=== PATIENT | male | born 1960 | race American Indian/Alaskan Native ===

== ENCOUNTER → 2024-11-07 | Outpatient (CLI) | payer MEDICARE, MEDICAID, SELFPAY ==
[2024-11-07 11:18] LABS: Quantiferon-TB* See Sep Rpt
[2024-11-07 11:39] LABS: Basophils # (Auto) 0.1 Thou/mm3 (0.0-0.2); Basophils % (Auto) 2 % (0-2.5); Eosinophils # (Auto) 1.3 Thou/mm3 (0.0-0.5); Eosinophils % (Auto) 14 % (0-10); Hematocrit 53.3 % (41.0-53.0); Hemoglobin 18.1 g/dL (13.5-16.0); Immature Granulocytes % (Auto) 0 % (0-0); Immature Granulocytes Auto 0.03 Thou/mm3 (0.00-0.00); Lymphocytes # (Auto) 2.1 Thou/mm3 (1.0-4.8); Lymphocytes % (Auto) 23 % (10-50); Mean Corpuscular Hemoglobin 29.6 pg (25.0-35.0); Mean Corpuscular Volume 87 fL (80-100); Monocytes # (Auto) 0.8 Thou/mm3 (0.0-0.8); Monocytes % (Auto) 8 % (0-12); Neutrophils # (Auto) 4.9 Thou/mm3 (1.8-7.7); Neutrophils % (Auto) 54 % (37-80); Nucleated Red Blood Cell % 0 /100 WBC (0); Platelet Count 251 Thou/mm3 (140-440); RDW Standard Deviation 41.8 fL (35.1-43.9); Red Blood Count 6.11 Miln/mm3 (4.50-5.90); White Blood Count 9.1 Thou/mm3 (3.8-10.6)
[2024-11-07 11:51] LABS: Glucose Estimated Average 171 mg/dL (80-131); Hemoglobin A1C 7.6 % Hgb (4.8-6.0)
[2024-11-07 12:03] LABS: Alanine Aminotransferase 56 U/L (10-49); Albumin, Serum 5.1 gm/dL (3.4-4.8); Albumin/Globulin Ratio 1.8 (1.2-2.2); Alkaline Phosphatase 87 U/L (46-116); Anion Gap 10 (7-16); Aspartate Amino Transferase 33 U/L (0-34); BUN/Creatinine Ratio 16 Ratio (12-20); Bilirubin,Total 0.7 mg/dL (0.3-1.2); Blood Urea Nitrogen 14 mg/dL (9-23); Calcium 10.7 mg/dL (8.3-10.6); Calcium (Corrected) 10.7 mg/dL (8.5-10.1); Carbon Dioxide 29.9 mMol/L (20.0-31.0); Chloride 100 mMol/L (98-107); Creatinine (Component) 0.9 mg/dL (0.6-1.3); Globulin 2.9 gm/dL (2.3-3.5); Glucose 193 mg/dL (74-106); Osmolality,Calculated 284 (275-295); Potassium 4.4 mMol/L (3.4-5.1); Sodium 140 mMol/L (136-145); eGFR > 60 See Note
[2024-11-07 12:05] LABS: Creatinine MALB Rnd Ur 62 mg/dL (30-125); Microalbumin, Random Urine < 3 mg/L (0-300)
[2024-11-08 12:27] LABS: Cocci Serology, IgM Negative (Negative)
[2024-11-09 13:42] LABS: Cocci Serology, IgG Negative (Negative)
== END | disposition home or self-care (01) ==
PROVIDERS: PCP Family Medicine; Referring Provider Internal Medicine; Visit Provider Internal Medicine
DX: E11.8 Type 2 diabetes mellitus with unspecified complications (principal); I10 Essential (primary) hypertension; J44.9 Chronic obstructive pulmonary disease, unspecified; R04.2 Hemoptysis
CPT/HCPCS: 36415; 80053; 82043; 82570; 83036; 85025; 86331; 86480; 86635

== ENCOUNTER → 2024-11-08 | Outpatient (CLI) | payer MEDICARE, MEDICAID, SELFPAY ==
--- NOTE | 2024-11-08 13:26 | XR_ITS ---
Examination: PA lateral chest 2 views Technique: Upright PA lateral chest 2 views Exam date and time: November 08, 2024 1356 hrs. Comparison 2022 Indications: Coughing beginning 2 days ago. Findings: Again noted pleural scarring at the right base Normal heart size No pneumonia or pulmonary edema Moderate osteopenia Impression: No interval pneumonia or pulmonary edema
--- NOTE | 2024-11-08 15:00 | XR_ITS ---
Examination: CT chest, without intravenous contrast. Sagittal and coronal 2-D reconstructions. Exam date and time: November 08, 2024 1340 hrs. Comparison June 28, 2024 Indications: Hemoptysis beginning 3 days ago, history 6 mm pleural-based pulmonary nodule lingular segment left upper lobe on CT chest June 28, 2024 CTDI:vol (mGy) 13.2 DLP: (mGycm) 481 Technique: Multiple 3.0 mm axial sections of the chest to been obtained. Bone and lung density settings are obtained. Sagittal and coronal 2-D reconstructions have been obtained. Low dose protocols were performed. One or more of the following dose reduction techniques were used; automated exposure control, adjustment of the mA and/or KV according to patient size, use of iterative reconstruction technique. Findings: No thoracic aortic aneurysm dilatation Pulmonary artery segments are not enlarged Heavy calcification versus stent left anterior descending coronary artery. No paratracheal tracheobronchial or bronchopulmonary adenopathy 6 mm pleural-based pulmonary nodule left upper lobe 2 mm pulmonary nodule left midlung 2 mm pulmonary nodule right lower lobe No pneumonia or pulmonary edema Calcifications in the right perihilar infrahilar region Impression: Subcentimeter pulmonary nodules as above, with this study as baseline recommend 1 additional 6 month follow-up CT chest without contrast
== END | disposition home or self-care (01) ==
PROVIDERS: PCP Internal Medicine; Referring Provider Internal Medicine; Visit Provider Internal Medicine
DX: R91.8 Other nonspecific abnormal finding of lung field (principal); R04.2 Hemoptysis
CPT/HCPCS: 71046; 71250

== ENCOUNTER 2025-04-27 16:05 | Inpatient (IN) | payer MEDICARE, MEDICAID, SELFPAY ==
[2025-04-27 16:06] VITALS: BMI 26.8
[2025-04-27 16:14] VITALS: BP 151/95; PULSE 87; RESP 20; TEMP 36.7; O2SAT 95
--- NOTE | 2025-04-27 16:20 | XR_ITS ---
Examination: CT brain head without contrast. 2-D sagittal coronal reconstructions Date and time of exam:April 27, 2025 1636 hours INDICATIONS: Onset numbness of face slurred speech and blurred vision today COMPARISON: April 04, 2023 CTDI: vol (mGy):52 DLP: (mGycm):1011 Technique: Multiple CT axial sections of the brain have been obtained, 5 mm slice thickness. Contrast has not been administered. 2-D sagittal, coronal reconstructions have been obtained Low dose protocols were performed. One or more of the following dose reduction techniques were used; automated exposure control, adjustment of the mA and/or KV according to patient size, use of iterative reconstruction technique. Findings: No significant ventricular enlargement. Intra-axial or extra-axial hemorrhage density is not seen. No mass effect or midline shift Basal cisterns are not remarkable. Fourth ventricle is midline. Cranial vault intact. Impression: Negative for acute hemorrhage, mass effect or midline shift As clinically warranted, brain MRI follow-up would best assess for acute ischemic change
--- NOTE | 2025-04-27 16:21 | PD.EDRME ---
Rapid Medical Screening Exam RME Arrival date/time: 04/27/25 16:05 64-year-old male with a history of hyperlipidemia, type 2 diabetes, hypertension presents to the emergency room with a chief complaint of slurred speech and left-sided mouth numbness x 3 days I have greeted and performed a focused initial assessment of this patient. A comprehensive ED assessment and evaluation of the patient, analysis of all test results, and completion of the medical decision making process will be conducted by additional ED providers. Chief Complaint: General Adult/Misc Complain Time Seen by Provider: 04/27/25 16:18 Vital signs: Vital Signs Temperature 98.0 F 04/27/25 16:14 Pulse Rate 87 04/27/25 16:14 Respiratory Rate 20 04/27/25 16:14 Blood Pressure 151/95 H 04/27/25 16:14 Pulse Oximetry (%) 95 04/27/25 16:14 Oxygen Delivery Method Room Air 04/27/25 16:14 Vital signs reviewed by provider: Yes
[2025-04-27 17:08] LABS: Basophils # (Auto) 0.1 Thou/mm3 (0.0-0.2); Basophils % (Auto) 1 % (0-2.5); Eosinophils # (Auto) 0.1 Thou/mm3 (0.0-0.5); Eosinophils % (Auto) 1 % (0-10); Hematocrit 50.6 % (41.0-53.0); Hemoglobin 17.1 g/dL (13.5-16.0); Immature Granulocytes Auto 0.03 Thou/mm3 (0.00-0.00); Lymphocytes # (Auto) 1.1 Thou/mm3 (1.0-4.8); Lymphocytes % (Auto) 11 % (10-50); Mean Corpuscular HGB Conc 33.8 g/dl (31.0-37.0); Mean Corpuscular Hemoglobin 29.3 pg (25.0-35.0); Mean Corpuscular Volume 87 fL (80-100); Monocytes # (Auto) 0.6 Thou/mm3 (0.0-0.8); Monocytes % (Auto) 7 % (0-12); Neutrophils # (Auto) 7.5 Thou/mm3 (1.8-7.7); Neutrophils % (Auto) 80 % (37-80); Nucleated Red Blood Cell # 0.00 Thou/mm3 (0.00-0.00); Nucleated Red Blood Cell % 0 /100 WBC (0); Platelet Count 212 Thou/mm3 (140-440); RDW Standard Deviation 40.2 fL (35.1-43.9); Red Blood Count 5.83 Miln/mm3 (4.50-5.90); White Blood Count 9.3 Thou/mm3 (3.8-10.6)
[2025-04-27 17:25] LABS: INR 1.2 (0.9-1.3); Partial Thromboplastin Time 27.8 Seconds (22.0-36.0); Prothrombin Time 12.5 Seconds (9.0-12.2)
[2025-04-27 17:27] LABS: Alanine Aminotransferase 58 U/L (10-49); Albumin, Serum 4.9 gm/dL (3.4-4.8); Albumin/Globulin Ratio 2.0 (1.2-2.2); Alkaline Phosphatase 71 U/L (46-116); Anion Gap 11 (7-16); Aspartate Amino Transferase 39 U/L (0-34); BUN/Creatinine Ratio 14 Ratio (12-20); Bilirubin,Total 0.6 mg/dL (0.3-1.2); Blood Urea Nitrogen 11 mg/dL (9-23); Calcium 10.2 mg/dL (8.3-10.6); Calcium (Corrected) 10.2 mg/dL (8.5-10.1); Carbon Dioxide 26.0 mMol/L (20.0-31.0); Chloride 103 mMol/L (98-107); Creatinine (Component) 0.8 mg/dL (0.6-1.3); Estimated Creatinine Clearance 96.3 mL/min (>60); Globulin 2.4 gm/dL (2.3-3.5); Glucose 152 mg/dL (74-106); Magnesium 1.3 mg/dL (1.6-2.6); Osmolality,Calculated 281 (275-295); Potassium 4.0 mMol/L (3.4-5.1); Sodium 140 mMol/L (136-145); Total Protein 7.3 gm/dL (5.7-8.2); eGFR > 60 See Note
[2025-04-27 17:29] LABS: Collection Type, Urine Clean Catch; RBC,Urine 0 /hpf (0-3); Squamous Epithelial Cell,Urine 0 /hpf (0-5); WBC,Urine 0 /hpf (0-5)
[2025-04-27 17:46] LABS: Bilirubin,Urine Negative (Negative); Blood,Urine Negative (Negative); Clarity,Urine Clear (Clear/Hazy); Color,Urine Colorless (Lt Yel-Yel); Glucose, Urine 4+ (Negative); Ketones,Urine Negative (Negative); Leukocyte Esterase,Urine Negative (Negative); Nitrite,Urine Negative (Negative); PH,Urine 6.5 (5.0-7.0); Protein,Urine Negative (Neg - Trace); Specific Gravity,Urine 1.011 (1.001-1.035); Urobilinogen,Urine Negative mg/dL (0.0-1.0)
[2025-04-27 17:53] LABS: Amphetamine/Methamp Scrn,U Negative (Negative); Barbiturate Screen,Urine Negative (Negative); Benzodiazepines Screen,Urine Negative (Negative); Benzoylecgonine Screen, Ur Negative (Negative); Fentanyl Screen,Urine Negative (Negative); Opiate Screen,Urine Negative (Negative); THC Screen,Urine Negative (Negative)
[2025-04-27 18:13] VITALS: BP 152/88; PULSE 82; RESP 18; TEMP 36.6; O2SAT 97
--- NOTE | 2025-04-27 18:15 | PC.NURSE ---
PT CAME IN WITH C/O TWITCHING TO R EYE, HEADACHE AND R FACIAL DROOP SINCE 11AM TODAY. PT STATES THAT 3 DAYS AGO HE FELT LIKE HIS TONGUE WAS NUMB AND HE LOST TASTE. PT STATES THAT HE THOUGHT HE MIGHT HAVE COVID SO HE TESTED AND TEST WAS NEGATIVE. TODAY HE STATES THAT AT 11 AM HE LOOKED IN THE MIRROR AND NOTICED THAT HIS R SIDE MOUTH LOOKED LIKE IT WAS DROOPING AND HE STATES THAT HE COULD NOT SPIT. HIS EYE WAS TWITCHING WELL. NO WEAKNESS NOTED TO EXTREMITIES. 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 PT ABLE TO MOVE ALL EXTREMITIES EQUALLY. GAIT STEADY. SPEECH CLEAR.
[2025-04-27 18:17] VITALS: PULSE 97
--- NOTE | 2025-04-27 18:17 | XR_ITS ---
Examination: CTA carotids with intravenous contrast CTA brain, head with intravenous contrast. 2-D sagittal, coronal reconstructions. 3-D reconstructions. Exam date and time: April 27, 2025, 1833 hours INDICATIONS: Left-sided facial weakness slurred speech today CTDI: vol (mGy) 17.6 DLP: (mGycm) 514 Technique: Multiple CTA axial brain, head carotid images post intravenous contrast injection 100 cc, [id number]. 2-D sagittal, coronal reconstructions. 3-D reconstructions, 3-D post processing including vascular maximum intensity projection images. Low dose protocols were performed. One or more of the following dose reduction techniques were used; automated exposure control, adjustment of the mA and/or KV according to patient size, use of iterative reconstruction technique. Findings: No significant right common carotid carotid bifurcation or internal carotid artery stenoses 40-60% stenosis left carotid bifurcation origin left internal carotid artery Dominant left vertebral artery no critical vertebral artery stenoses Basilar artery posterior cerebral branches do fill Juxtasellar supraclinoid portions internal carotid arteries show, heavy calcification of the juxtasellar portions of the internal carotid arteries with 50% plus stenosis bilaterally No M1 middle cerebral artery occlusions There appears to be some decrease in filling of right middle cerebral artery trifurcation vessels Anterior cerebral arteries fill IMPRESSION: 40-60% stenosis left carotid bifurcation origin left internal carotid artery 50% plus stenosis bilateral juxtasellar internal carotid arteries No large vessel arterial cerebral occlusions There appears to be some decrease in filling of right middle cerebral artery trifurcation vessels, clinical correlation is advised Given the patient's presentation, consider brain MRI MRA, stroke protocol, follow-up
--- NOTE | 2025-04-27 18:20 | PD.EDNEURO ---
Neuro Symptoms Deficit-RME/HPI General Chief Complaint: Neuro Symptoms/Deficit Stated Complaint: VISION FLUTTERY/BLURRY, MOUTH NOT WORKING Time Seen by Provider: 04/27/25 16:18 Arrival date/time: 04/27/25 16:05 Limitations: no limitations RME / HPI RME / HPI Narrative: 64-year-old male who is here today with his partner. He states 3 days ago, he had some flavor changes and numbness of his tongue and upper palate. He states he took numerous COVID screening test that were negative. He states he went to a casino last night but did not abuse alcohol. He states he felt fine. This morning at 11:00 AM, he noted right-sided facial numbness and a slight droop at his corner of his right lip. He states he has had difficulty with some secretions that started at the same time. Patient states he has a remote history of DVT and does not take any blood thinners right now. He has a history of carotid artery stenosis, coronary artery disease, diabetes, hypertension, and prior atrial fibrillation. Related Data Home Medications ?Medication ?Instructions ?Recorded ?Confirmed aspirin 81 mg tablet,delayed 81 mg PO QDAY ##0 10/04/15 12/01/23 release (Aspir-) metformin 1,000 mg tablet 1,000 mg PO BID #0 tabs 01/12/17 12/01/23 (Glucophage) atorvastatin 40 mg tablet 20 mg PO QDAY 05/13/19 12/01/23 lorazepam 0.5 mg tablet 0.5 mg PO BID PRN Anxiety 05/13/19 12/01/23 montelukast 10 mg tablet 10 mg PO QDAY 06/07/19 12/01/23 fluticasone furoate 100 1 inh inhalation DAILY 07/29/22 12/01/23 mcg-vilanterol 25 mcg/dose inhalation powder (Breo Ellipta) insulin aspart U-100 100 unit/mL See Rx Instructions .Route .COMPLEX 07/29/22 12/01/23 (3 mL) subcutaneous pen (Novolog FlexPen U-100 Insulin aspart) insulin glargine 100 unit/mL (3 See Rx Instructions .Route .COMPLEX 07/29/22 12/01/23 mL) subcutaneous pen (Lantus Solostar U-100 Insulin) empagliflozin 25 mg tablet 25 mg PO QDAY 12/01/23 12/01/23 (Jardiance) losartan 50 mg tablet 100 mg PO QDAY 12/01/23 12/01/23 Allergies Allergy/AdvReac Type Severity Reaction Status Date / Time Penicillins Allergy Severe Flushing Verified 04/27/25 16:10 Review of Systems Review of Systems Systems Reviewed: All systems reviewed, normal except as documented ED Exam General Limitations: Present no limitations General appearance: Present alert and in no apparent distress Head Head exam: Present atraumatic Eye Eye exam: Present normal appearance, PERRL and EOMI ENT ENT exam: Present normal exam, normal oropharynx and mucous membranes moist Neck Neck exam: Present normal inspection, full ROM and trachea midline Chest Chest inspection: Present normal inspection and symmetric chest wall rise Respiratory Respiratory exam: Present normal lung sounds bilaterally Cardiovascular Cardiovascular exam: Present regular rate, normal rhythm and normal heart sounds Abdominal Exam Abdominal exam: Present soft and normal bowel sounds Extremities Exam Extremities exam: Present normal inspection and full ROM Back Exam Back exam: Present normal inspection and full ROM Neurological Exam Neurological exam: Present alert, oriented X3 and CN II-XII intact (There is a right sided facial droop, cranial nerves II to XII otherwise intact.) Psychiatric Psychiatric exam: Present normal affect and normal mood Skin Skin exam: Present warm, dry, intact and normal color Course Course Course Narrative: Took call from teleneuro, recommend aspirin, valacyclovir, corticosteroids and MRI with and without contrast. 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 START 00 Care 04/27/25 18:16 Active Decision to Admit X1 Care 04/27/25 19:29 Active EKG (ED ONLY) *Do not use* NOW Care 04/27/25 18:29 Active Insert IV NOW Care 04/27/25 18:16 Active MRI Screening NOW Care 04/27/25 19:[address] angio carotid w head w Stat Exams 04/27/25 18:[address] head/brain wo con Stat Exams 04/27/25 16:20 Completed EKG (ED Only) Stat Exams 04/27/25 18:29 Draft MR head/brain wo con Stat Exams 04/27/25 Ordered CBC Stat Lab 04/27/25 16:57 Completed Comprehensive Metabolic Panel Stat Lab 04/27/25 16:57 Completed Drug Screen,Urine Stat Lab 04/27/25 17:23 Completed Magnesium Stat Lab 04/27/25 16:57 Completed Partial Thromboplastin Time Stat Lab 04/27/25 16:57 Completed Prothrombin Time with INR Stat Lab 04/27/25 16:57 Completed Urinalysis Stat Lab 04/27/25 17:23 Completed Acyclovir [Zovirax] Med 04/27/25 18:41 Discontinued 800 mg PO X1 ONE Aspirin Chew Med 04/27/25 18:41 Discontinued 81 mg PO X1 ONE Magnesium Oxide [Mag-Ox 400] Med 04/27/25 18:04 Discontinued 400 mg PO X1 ONE Magnesium Sulfate 1 gm Ivpb [Magnesium Sulfate Ivpb] Med 04/27/25 18:05 Discontinued 1 gm in 100 ml IV X1 dexAMETHasone TAB [Decadron Tab] Med 04/27/25 19:00 Discontinued 8 mg PO X1 ONE Vital Signs Vital signs: Vital Signs Temperature 98.0 F 04/27/25 16:14 Pulse Rate 87 04/27/25 16:14 Respiratory Rate 20 04/27/25 16:14 Blood Pressure 151/95 H 04/27/25 16:14 Pulse Oximetry (%) 95 04/27/25 16:14 Oxygen Delivery Method Room Air 04/27/25 16:14 Neuro Symptoms / Deficit MDM Narrative MDM Narrative:: 64-year-old male who is here today with his partner. He states 3 days ago, he had some flavor changes and numbness of his tongue and upper palate. He states he took numerous COVID screening test that were negative. He states he went to a casino last night but did not abuse alcohol. He states he felt fine. This morning at 11:00 AM, he noted right-sided facial numbness and a slight droop at his corner of his right lip. He states he has had difficulty with some secretions that started at the same time. Patient states he has a remote history of DVT and does not take any blood thinners right now. He has a history of carotid artery stenosis, coronary artery disease, diabetes, hypertension, and prior atrial fibrillation. Patient's onset of symptoms at 11:00 AM triggered our stroke alert. On exam, patient is nontoxic-appearing and in no visible signs of distress. Vital signs are stable. He has symmetrical elevation of bilateral eyelids. There is a mild droop at the corner of the right mouth. Speech is clear. Workup here was unremarkable. Neurology recommended treatment for possible Brown's palsy and further workup including MR of the brain with and without contrast. This discussed with the patient. We will admit to medicine. Case discussed with our [facility] hospitalist team will see the patient for admission. Patient data External records reviewed:: None Clinical information provided by:: patient and family Social determinants that could affect healthcare access:: none Patient has the following chronic illnesses:: Hypertension, hyperlipidemia, diabetes, coronary artery disease, carotid artery stenosis How is presenting disease/condition affected by chronic disease/condition?: exacerbated by Evaluation data The following diagnostics were reviewed and interpreted by me:: lab results (CBC is unremarkable. PT/INR within normal limits. Glucose is 152, metabolic panel otherwise unremarkable. Urinalysis is unremarkable.), radiology exam(s) (CT of the head is unremarkable for any acute intracranial pathology.) and EKG tracing(s) (Normal sinus rhythm at 78 beats per of no ST changes or dynamic T waves. Left axis deviation is present.) Lab and/or radiology exams considered but not ordered:: n/a Interpretation Summary: Possible Brown's palsy versus acute CVA. Medications / Prescriptions Medications or Prescriptions considered but not ordered:: n/a Medication administrations:: Medication Administration History Discontinued Medications Acyclovir (Acyclovir 800 Mg Tablet) 800 mg PO X1 ONE Stop: 04/27/25 18:42 Aspirin (Aspirin 81 Mg Chew) 81 mg PO X1 ONE Stop: 04/27/25 18:42 Dexamethasone (Dexamethasone 4 Mg Tablet) 8 mg PO X1 ONE; Protocol Stop: 04/27/25 19:01 Magnesium Sulfate/Dextrose (Magnesium Sulfate Ivpb) 1 gm in 100 mls @ 100 mls/hr IV X1 ONE Stop: 04/27/25 19:04 Last Admin: 04/27/25 18:16 Dose: 100 mls/hr Documented By: DO Magnesium Oxide (Magnesium Oxide 400 Mg Tablet) 400 mg PO X1 ONE Stop: 04/27/25 18:05 Last Admin: 04/27/25 18:16 Dose: Not Given Documented By: DO Non-Admin Reason: Cancelled by Provider See above Consultations Consultation(s) initiated? (list below): Yes Diagnosis Neuro Differential Diagnosis: cerebrovascular accident, transient cerebral ischemia and other (Brown's palsy) Most likely diagnosis given after review of the tests above:: Brown's palsy versus CVA Admission Indicated Admission indicated?: indicated Admission Request Was there a request for admission?: Yes Admission Attestation Admission request attestation: Discussed case with [] from Hospitalist service regarding admission. Discussed patients ED course, exam findings, labs, and radiology results. The Hospitalist [agrees,declines] to accept the patient for admission. Disposition Plan Disposition Plan: Admit Discharge Plan Plan Patient Disposition: Admit Acute Care w/in Hospital Patient condition on transfer: Stable Prescriptions/Referrals Prescriptions/Med Rec: No Action aspirin [Aspir-81] 81 mg Tablet,Delayed Release (Dr/Ec) 81 mg PO QDAY Qty: 0 metformin [Glucophage] 1,000 MG tablet 1,000 mg PO BID Qty: 0 montelukast 10 mg tablet 10 mg PO QDAY Patient Comments: TAKE 1 TABLET BY MOUTH EVERY DAY IN THE EVENING atorvastatin 40 mg tablet 20 mg PO QDAY Patient Comments: TAKE 1 TABLET BY MOUTH EVERY DAY lorazepam 0.5 mg Tablet 0.5 mg PO BID PRN (Reason: Anxiety) insulin aspart U-100 [Novolog FlexPen U-100 Insulin] 100 unit/mL (3 mL) insulin pen See Rx Instructions .ROUTE .COMPLEX Patient Comments: INJECT 10 TO 12 UNITS UNDER THE SKIN THREE TIMES DAILY WITH MEALS Rx Instructions: 12-16 units insulin glargine [Lantus Solostar U-100 Insulin] 100 unit/mL (3 mL) insulin pen See Rx Instructions .ROUTE .COMPLEX Patient Comments: ADMINISTER 60 UNITS UNDER THE SKIN EVERY DAY. INSULIN PROTOCOL Rx Instructions: 60 units fluticasone furoate-vilanterol [Breo Ellipta] 100-25 mcg/dose Blister With Device 1 inh INHALATION DAILY Jardiance 25 mg Tablet 25 mg PO QDAY losartan 50 mg tablet 100 mg PO QDAY Referrals: Gibran Sandy PA-C [Primary Care Provider] - In 1 week Problem List Clinical Impression: Facial droop Patient/Caregiver Discharge Instructions Print Language: Peruvian Stand Alone Forms: Stefania Award Info., Patient Portal Info Letter
--- NOTE | 2025-04-27 18:21 | PC.NURSE ---
PT TO CT
--- NOTE | 2025-04-27 18:29 | EKG_ITS ---
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: : 1960 Requested By: Lucien Govea Order Number: [id number] Reading MD: Lucien Govea Measurements Intervals [place] Rate: 78 P: 9 [place]: 193 QRS: -38 QRSD: 104 T: 124 QT: 366 QTc: 419 Interpretive Statements SINUS RHYTHM LEFT AXIS DEVIATION [QRS AXIS < -30] SEPTAL MYOCARDIAL INFARCTION , OF INDETERMINATE AGE [40+ ms Q WAVE IN V1/V2] MODERATE T-WAVE ABNORMALITY, CONSIDER LATERAL ISCHEMIA [-0.1+ mV T-WAVE IN I/aVL/V5/V6] Compared to ECG 04/04/2023 19:07:34 Left-axis deviation now present T-wave abnormality now present Possible ischemia now present Sinus tachycardia no longer present Left anterior fascicular block no longer present Left ventricular hypertrophy no longer present ST (T wave) deviation no longer present Myocardial infarct finding still present /store/[id number]
--- NOTE | 2025-04-27 18:41 | PD.TNEURO ---
Tele Neuro Consultation Consultation Date 04/27/25 Most Recent Vital Signs Last Vital Signs Temp 97.8 F 04/27/25 18:13 Pulse 97 04/27/25 18:17 Resp 18 04/27/25 18:13 BP 152/88 H 04/27/25 18:13 Pulse Ox 97 04/27/25 18:13 O2 Del Method Room Air 04/27/25 18:13 Laboratory-Coagulation Panel PT 12.5 Seconds (9.0-12.2) H 04/27/25 16:57 INR 1.2 (0.9-1.3) 04/27/25 16:57 APTT 27.8 Seconds (22.0-36.0) 04/27/25 16:57 Consultation Narrative [facility] Tele[facility]urology Consult Services Patient Name:???Severino Sim Date of :???1960 Identification Number:??? Date of Service:???04/27/2025 18:19:11 Diagnosis:?R29.810 - Facial numbness/ Facial weakness Impression: ?Patient is a 64-year-old male with a past medical history significant for hypertension, hyperlipidemia, CAD who is being evaluated for concerns of right sided facial weakness. ?Presents with complaints of tongue numbness, taste changes, right-sided facial droop, reduced eye closure strength on the right eye, some visual changes on the right eye. ?Symptom onset 3 days back ?Head CT shows no acute intracranial changes. ?On exam patient has both upper and lower right sided facial weakness. Reduced eye closure strength, reduced blinking rate. No clear lateralizing weakness or numbness on the upper or lower extremities. No upper extremity ataxia bilaterally. Gait is intact with no truncal or gait ataxia. ? 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 ?Can consider treating with oral steroids and antivirals. ?Low suspicion for an acute ischemic event. Last well-known greater than 4-1/2 hours patient is not an IV thrombolytic candidate. ?Due to the occasional dysequilibrium can obtain MRI brain with and without contrast (Cranial nerve protocol) to rule out anycentral etiologies. Our recommendations are outlined below. Recommendations: ? Bedside Swallow Eval ? DVT Prophylaxis ? IV Fluids, Normal Saline ? Head of Bed 30 Degrees ? Euglycemia and Avoid Hyperthermia (PRN Acetaminophen) ? 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 ?Can consider treating with oral steroids and antivirals. ?Low suspicion for an acute ischemic event. Last well-known greater than 4-1/2 hours patient is not an IV thrombolytic candidate. ?Continue ASA 81 ?Due to the occasional dysequilibrium can obtain MRI brain with and without contrast (Cranial nerve protocol) to rule out anycentral etiologies. Sign Out: ? Discussed with Emergency Department Provider Advanced Imaging: Advanced Imaging Deferred because: Does not meet criteria due to being out of the 24-hour window for thrombectomy Metrics: Last Known Well: Unknown Dispatch Time: 04/27/2025 18:19:11 Arrival Time: 04/27/2025 18:20:15 Initial Response Time: 04/27/2025 18:23:01Symptoms: Right sided facial droop. Initial patient interaction: 04/27/2025 18:25:00 NIHSS Assessment Completed: 04/27/2025 18:33:53Patient is not a candidate for Thrombolytic. Thrombolytic Medical Decision: 04/27/2025 18:34:04Patient was not deemed candidate for Thrombolytic because of following reasons: LKW outside 4.[address] Head: CT head unremarkable for acute infarction or hemorrhage per Radiology: report reviewed Primary Provider Notified of Diagnostic Impression and Management Plan on: 04/27/2025 18:36:52 History of Present Illness:Patient is a 64 year old Male. Patient was brought by private transportation with symptoms of Right sided facial droop. Patient is a 64-year-old male with a past medical history significant for hypertension, hyperlipidemia, CAD who is being evaluated for concerns of right sided facial weakness. Patient mentions that he has been having symptoms since the last 3 days. Mentions that he initially started having numbness in the right side of his mouth. Food tasted differently. Then he noticed that his right side of the face is droopy when he is smiling. He is also complaining of some visual flashers on the right eye. He is also complaining of some off balance issues which come and go. He is able to ambulate in the ED without any difficulty. Past Medical History: ?Hypertension ?Diabetes Mellitus ?Hyperlipidemia ?Coronary Artery Disease Medications: No Anticoagulant use? Antiplatelet use:?Yes?ASA 81 Reviewed EMR for current medications Allergies:? Description:?As per chart Social History: Smoking: No Family History: There is no family history of premature cerebrovascular disease pertinent to this consultation ROS : 14 Points Review of Systems was performed and was negative except mentioned in HPI. Past Surgical History: There Is No Surgical History Contributory To Today?s Visit Examination: BP(151/95),?Pulse(97), 1A: Level of Consciousness - Alert; keenly responsive?+ 0 1B: Ask Month and Age - Both Questions Right?+ 0 1C: Blink Eyes & Squeeze Hands - Performs Both Tasks?+ 0 2: Test Horizontal Extraocular Movements - Normal?+ 0 3: Test Visual Tovar - No Visual Loss?+ 0 4: Test Facial Palsy (Use Grimace if Obtunded) - Unilateral Complete paralysis (upper/lower face)?+ 3 5A: Test Left Arm Motor Drift - No Drift for 10 Seconds?+ 0 5B: Test Right Arm Motor Drift - No Drift for 10 Seconds?+ 0 6A: Test Left Leg Motor Drift - No Drift for 5 Seconds?+ 0 6B: Test Right Leg Motor Drift - No Drift for 5 Seconds?+ 0 7: Test Limb Ataxia (FNF/Heel-Valenzuela) - No Ataxia?+ 0 8: Test Sensation - Normal; No sensory loss?+ 0 9: Test Language/Aphasia - Normal; No aphasia?+ 0 10: Test Dysarthria - Normal?+ 0 11: Test Extinction/Inattention - No abnormality?+ 0 NIHSS Score:?3 Pre-Morbid Modified Gavi Scale:1 Points = No significant disability despite symptoms; able to carry out all usual duties and activities Spoke with :?ED Provider This consult was conducted in real time using interactive audio and video technology. Patient was informed of the technology being used for this visit and agreed to proceed. Patient located in hospital and provider located at home/office setting. Patient is being evaluated for possible acute neurologic impairment and high probability of imminent or life-threatening deterioration. I spent total of 45 minutes providing care to this patient, including time for face to face visit via telemedicine, review of medical records, imaging studies and discussion of findings with providers, the patient and/or family. Dr Kaden Sosa [facility] For Inpatient follow-up with [facility] physician please call [facility] at . As we are not an outpatient service for any post hospital discharge needs please contact the hospital for assistance. If you have any questions for the [facility] physicians or need to reconsult for clinical or diagnostic changes please contact us via [facility] at . Signature :Diane Sosa
--- NOTE | 2025-04-27 18:46 | PC.NURSE ---
PT BACK FROM CT
[2025-04-27] MEDS: ACYCLOVIR 800 MG TABLET PO (20:25)
[2025-04-27] MEDS: ASPIRIN 81 MG CHEW PO (20:25)
[2025-04-27 20:43] VITALS: BP 149/88; PULSE 75; RESP 17; TEMP 36.7; O2SAT 96
--- NOTE | 2025-04-27 21:23 | XR_ITS ---
Examination: Duplex scan of the lower extremity, unilateral right Date and time of exam: April 27, 2025 2139 hours INDICATIONS: Right leg pain 1 year Technique: Duplex scan of the extremity veins using B-mode/grayscale imaging and Doppler spectral analysis and color flow Attention is directed to internal echogenicity, compression and augmentation involving these veins, color flow assessment, spectral analysis Findings: Positive for acute DVT proximal right superficial femoral vein remaining deep venous system ( IMPRESSION: Positive for acute DVT proximal right superficial femoral vein..
--- NOTE | 2025-04-27 21:35 | ESHP_ITS ---
Documentation for date of: 04/27/25 [facility] History of Present Illness Chief complaint: Vision flashes, mouth not working History of present illness: 64-year-old male with PMH of CAD s/p stent, HTN, DM2 (on insulin), HLD, prior A- fib (off anticoagulation) not confirmed, remote DVT (untreated), and carotid artery stenosis, who presented with right-sided facial droop and tongue/palate numbness. Three days prior to admission, he noted abnormal tongue sensation and altered taste, initially attributing it to herbal supplements (oregano oil and black seed oil). He discontinued them 2 days ago without improvement. On the morning of admission (11 AM), he developed new right-sided facial droop, incomplete right eye closure, and difficulty spitting. He also reported flashes of light in the right eye and brief episodes of disequilibrium while brushing his teeth in the preceding week. No limb weakness, dysarthria, aphasia, or sensory loss. He endorsed mild headache, intermittent sweats, and chronic left ear fullness/itching. No fevers, cough, chest pain, or dysphagia. He has a remote history of DVT, CAD with stent (2016), and prior A-fib but is not on anticoagulation. He denies recent tobacco, alcohol, or drug use. He quit smoking in 2014 (20 pack-years) and alcohol in 2002. Workup in ED: CT head negative for acute infarct/bleed. CTA showed 40?60% left ICA stenosis, ~50% bilateral juxtasellar ICA stenosis, no large vessel occlusion. Labs largely unremarkable except Mg 1.3. EKG NSR, LAD, Q waves V1?V2, nonspecific T-wave changes. 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 They recommended MRI brain with CN protocol, ASA, DVT prophylaxis, and consideration of steroids/antivirals. Review of Systems * General: +Sweats, no weight loss, no fever/chills * HEENT: +Tongue/palate numbness, +facial droop, +eye flashes, +ear fullness/itching, no hearing loss, no dysphagia * Neuro: +Mild GUTIERREZ, +facial asymmetry, +balance issues, no limb weakness, no sensory loss * CV: Occasional mild chest discomfort, no palpitations, no edema * Resp: No SOB, cough, hemoptysis * GI: Loose stools x3 days, no abdominal pain, no N/V * : No dysuria or hematuria * Skin: No rashes, recent insect bite RLE (healed, no target lesion) * MSK: No new joint pain * Endo: No polydipsia/polyuria Past Medical History * CAD s/p stent (2016) * Carotid artery stenosis (40?60% left ICA, bilateral ~50% stenosis) * Hypertension * Hyperlipidemia * Diabetes mellitus type 2 (on insulin + metformin) * Atrial fibrillation (off anticoagulation ~1.5 years) * Remote DVT (untreated, RLE larger than LLE) * History of valley fever * Prior lung surgery (RLL resection for clot burden) Past Surgical History * PCI with stent placement (2016) * Right lower lobe lung resection * Knee surgery (2001) Medications (pending med rec's) * Insulin glargine 50 units qHS * Insulin lispro 12 units with meals * Metformin * Lisinopril * Magnesium supplement * Aspirin 81 mg daily Allergies * Penicillin (reaction unspecified) Family History * Father: CAD, of [place] * No known family history of stroke Social History * Lives with partner * Former smoker (20 pack-years, quit 2014) * Quit alcohol 2002 * Denies recreational drug use * 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 Pupils equal, EOMI, no nystagmus. Oral mucosa moist; tongue midline; decreased sensation of tongue/palate. Neuro: CN II?XII intact except R CN VII palsy. Strength 5/5 in all extremities, no pronator drift. Sensation intact. No dysmetria, gait steady. Speech fluent and clear. Cardiac: RRR, no murmurs Lungs: CTAB Abdomen: Soft, NT/ND, no organomegaly Extremities: RLE slightly larger than LLE, no tenderness, no erythema Skin: Healing insect bite on leg, no rash or erythema migrans Results: Labs 04/27/25 16:57 04/27/25 16:57 Labs: Short CBC 04/27/25 Range/Units 16:57 WBC 9.3 (3.8-10.6) Thou/mm3 Hgb 17.1 H (13.5-16.0) g/dL Hct 50.6 (41.0-53.0) % Plt Count 212 (140-440) Thou/mm3 BMP 04/27/25 16:57 Sodium 140 Potassium 4.0 Chloride 103 Carbon Dioxide 26.0 BUN 11 Creatinine 0.8 Glucose 152 H Calcium 10.2 Liver Function 04/27/25 Range/Units 16:57 Total Bilirubin 0.6 (0.3-1.2) mg/dL AST 39 H (0-34) U/L ALT 58 H (10-49) U/L Alkaline Phosphatase 71 (46-116) U/L Albumin 4.9 H (3.4-4.8) gm/dL Urine 04/27/25 Range/Units 17:23 Urine Color Colorless A (Lt Yel-Yel) Urine Clarity Clear (Clear/Hazy) Urine pH 6.5 (5.0-7.0) Ur Specific [place] 1.011 (1.001-1.035) Urine Protein Negative (Neg - Trace) Urine Glucose (UA) 4+ A (Negative) Quality Measures Quality Measures VTE therapy Medications Home Medications and Allergies Home Medications ?Medication ?Instructions ?Recorded ?Confirmed ?Type aspirin 81 mg tablet,delayed 81 mg PO QDAY ##0 6 12/01/23 History release (Aspir-) metformin 1,000 mg tablet 1,000 mg PO BID #0 tabs 05/0 12/2612/01/23 History (Glucophage) atorvastatin 40 mg tablet 20 mg PO QDAY 05/13/1911/30 History lorazepam 0.5 mg tablet 0.5 mg PO BID PRN Anxiety 12/01/23 History montelukast 10 mg tablet 10 mg PO QDAY 06/07/1911/30 History fluticasone furoate 100 1 inh inhalation DAILY 07/2912/01/23 History mcg-vilanterol 25 mcg/dose inhalation powder (Breo Ellipta) insulin aspart U-100 100 unit/mL See Rx Instructions . Route .COMPLEX 07/29/22 12/01/23 History (3 mL) subcutaneous pen (Novolog FlexPen U-100 Insulin aspart) insulin glargine 100 unit/mL (3 See Rx Instructions .R oute .COMPLEX 07/29/22 12/01/23 History mL) subcutaneous pen (Lantus Solostar U-100 Insulin) empagliflozin 25 mg tablet 25 mg PO QDAY 12/01/2311/10 History (Jardiance) losartan 50 mg tablet 100 mg PO QDAY 12/01/2311/10 History Allergies Allergy/AdvReac Type Severity Reaction Status Date / Time Penicillins Allergy Severe Flushing Verified 04/27/25 16:10 Visit Medications Acetaminophen (Acetaminophen 325 Mg Tablet) 650 mg PO Q6H PRN PRN Reason: Fever >100.4 Stop: 05/27/25 21:09 Acetaminophen (Acetaminophen 325 Mg Tablet) 650 mg PO Q6H PRN PRN Reason: PAIN SCALE 1-3 (mild Stop: 05/27/25 21:09 Dextrose (Dextrose 50%-Water Inj 50 Ml Syringe) 25 ml IV Q15MIN PRN PRN Reason: BG 50-70 responsive npo pt Stop: 05/27/25 21:09 Dextrose (Dextrose 50%-Water Inj 50 Ml Syringe) 50 ml IV Q15MIN PRN PRN Reason: BG <50 OR BG <70 & pt unresponsive Stop: 05/27/25 21:09 Glucagon (Glucagon Inj 1 Mg Vial) 1 mg IM Q15MIN PRN PRN Reason: BG <70, and no IV access Heparin Sodium (Porcine) (Heparin Sod Inj 5000 Unit/Ml Vial) 5,000 unit SC Q12HR SHALOM Stop: 05/12/25 08:59 Magnesium Sulfate (Magnesium Sulfate Ivpb) 4 gm in 50 mls @ 12.5 mls/hr IV X1 ONE Stop: 04/28/25 01:25 Insulin Glargine (Insulin Glargine (Lantus) 5 Unit/0.05 Ml (Per 5 Units)) 40 unit SC HS SHALOM Stop: 05/27/25 21:24 Insulin Human Lispro (Insulin Lispro (Admelog) 1 Unit/0.01 Ml Unit) 0 unit SC AC SHALOM; Protocol Stop: 05/28/25 07:29 Ondansetron HCl (Ondansetron Inj 2 Mg/Ml Inj 2 Ml) 4 mg IVP Q6H PRN; Protocol PRN Reason: NAUSEA OR VOMITING Stop: 05/27/25 21:09 Pantoprazole Sodium (Pantoprazole Inj 40 Mg Vial) 40 mg IVP QDAY SHALOM Stop: 05/28/25 08:59 Prednisone (Prednisone 20 Mg Tablet) 60 mg PO QDAY SHALOM Stop: 05/04/25 21:06 Discontinued Medications Acyclovir (Acyclovir 800 Mg Tablet) 800 mg PO X1 ONE Stop: 04/27/25 18:42 Last Admin: 04/27/25 20:25 Dose: 800 mg Aspirin (Aspirin 81 Mg Chew) 81 mg PO X1 ONE Stop: 04/27/25 18:42 Last Admin: 04/27/25 20:25 Dose: 81 mg Dexamethasone (Dexamethasone 4 Mg Tablet) 8 mg PO X1 ONE; Protocol Stop: 04/27/25 19:01 Last Admin: 04/27/25 20:25 Dose: 8 mg Magnesium Sulfate/Dextrose (Magnesium Sulfate Ivpb) 1 gm in 100 mls @ 100 mls/hr IV X1 ONE Stop: 04/27/25 19:04 Last Infusion: 04/27/25 19:55 Dose: Infused Magnesium Oxide (Magnesium Oxide 400 Mg Tablet) 400 mg PO X1 ONE Stop: 04/27/25 18:05 Last Admin: 04/27/25 18:16 Dose: Not Given Assessment & Plan Plan 64M with CAD, HTN, DM2, HLD, prior A-fib (off anticoagulation due to prior major bleed), remote DVT, carotid stenosis, presenting with right facial droop. 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 Duplex US now positive for acute R SFA DVT. Patient placed in observation on telemetry. # Stroke rule out # CN VII palsy Presentation most consistent with Brown?s palsy given upper + lower face involvement, incomplete eye closure, and absence of other focal neuro deficits. Stroke less likely but not excluded MRI pending. Plan: * Observation on telemetry * MRI brain with and without contrast * ASA 81 mg daily (continue) * Prednisone 60 mg daily ? 7 days (start date 04/28- ) * Valacyclovir not in EMR --> day team to call pharmacy to give valacyclovir 1g 3 times daily for 7 days * Follow-up HgbA1c, lipid panel * If not available, use Acyclovir 400 mg PO 5x daily ? 10 days (less convenient, inferior bioavailability) * Follow-up echocardiogram * Swallow evaluation * Neuro checks q6h * Neuroconsulted, recommendations appreciated # Acute embolism and thrombosis of right femoral vein RLE duplex: positive for acute DVT in R SFV. History of remote untreated DVT. Risks and benefits of starting patient on anticoagulation discussed in length, patient in agreement to be started on anticoagulation. Plan: * Patient has clear indication for therapeutic anticoagulation * Needed heparin drip per protocol * Discussed risks/benefits with patient, including prior GI bleed history; patient agreed to proceed with heparin drip * Monitor CBC daily * Long-term anticoagulation to be reassessed with neurology and cardiology # Atrial fibrillation History of paroxysmal A-fib, currently in NSR. Previously on anticoagulation, stopped 2?3 years ago after GI bleed with Hgb dropping to 6, source unidentified. CHADS-VASc >4, anticoagulation indicated Has-bled score 1, Patient has relatively low risk for major bleeding Plan: * Telemetry monitoring * Now covered with heparin drip for acute DVT, which also provides stroke prophylaxis for A-fib * Consult cardiology (Dr. Padilla) for input on long-term anticoagulation strategy and A-fib management # Carotid artery stenosis CTA head/neck: 40?60% L ICA stenosis, ~50% bilateral juxtasellar ICA stenosis. No LVO. Plan: * Continue ASA 81 mg daily * High-intensity statin (atorvastatin 80 mg daily) * Monitor for recurrent TIA/stroke symptoms # Coronary artery disease S/p stent (2017). Stable, EKG with old septal infarct, no acute ischemia. Plan: * Continue ASA 81 mg * Continue lisinopril * Continue/start statin * Telemetry monitoring # Diabetes mellitus type 2 On insulin glargine 50 units nightly, lispro 12 units with meals, metformin. To avoid hypoglycemia, gave glargine 40 units tonight until med rec confirmed. Plan: * Continue insulin with adjusted glargine 40 units qHS for now * Resume full home regimen once med rec verified * Hold metformin inpatient * SSI coverage * Monitor closely given steroid therapy (prednisone 60 mg daily) * A1C pending # Hypomagnesemia Mg 1.3 on arrival, repleted in ED. Plan: * Monitor BMP/Mg daily # Hypertension # Hyperlipidemia Plan: * Continue lisinopril * Continue atorvastatin once med rec's are back Health maintenance: Disposition: Observation on telemetry Diet: Cardiac + carb consistent Anticoagulation: Heparin drip initiated for acute DVT and A-fib stroke prevention GI prophylaxis: Protonix Neuro checks: q4h Code Status: Full Code ----- Plan discussed with attending physician Dr. Yady Mcintosh MD PGY-1 Internal Medicine Attending Provider Attestation/Addendum Attending Provider Attestation/Addendum After examination of the patient and review of the clinical data I feel that this patient needs admission to the hospital for further treatment/evaluation. I Matthew Conteh MD, attest that I was physically present for ramírez portions of evaluation, and examined patient, labs and imagings and plan of care were discussed with IM residents team, and I agree with the findings and plans documented above.
[2025-04-27 21:36] VITALS: RESP 97
--- NOTE | 2025-04-27 21:45 | PC.NURSE ---
pt given sandwich, chips and juice.
[2025-04-27] MEDS: Magnesium Sulfate 4 GM Ivpb 4 GM/50 ML BAG IV (21:58)
--- NOTE | 2025-04-27 21:58 | PC.NURSE ---
lantus not available in er pixus. global find done states med not available in hospital. informed linen room houseperson, states will check for medication.
[2025-04-27] MEDS: INSULIN DEGLUDEC 5 UNIT/0.05 ML (PER 5 UNITS) 40 UNIT SC (22:23)
[2025-04-27 23:51] VITALS: PULSE 90
[2025-04-28] VITALS (9 sets, daily range): BP systolic 114–141; BP diastolic 79–89; PULSE 82–95; RESP 15–97; TEMP 35.9–37.1; O2SAT 95–97; BMI 25.7
--- NOTE | 2025-04-28 | XR_ITS ---
Examination: MRI brain without intravenous contrast. Date and time of exam: April 28, 20254 hours INDICATIONS: Onset facial droop and facial numbness with headaches beginning yesterday Technique: Multiple axial and sagittal images of the brain obtained. Siemens high-resolution 1.5 Brittany short bore scanners utilized. Sagittal sections, T1-weighted, TR 500, TE 14, are performed. Axial sections proton-density and T2-weighted have been obtained. Inversion recovery axial images, TR 9, 260, TE 111, TI 2500. Diffusion weighted images, axial sections, TR 4800, TE 128, B value 1000 Axial sections, ADC map, TR 4800, TE 128 Findings: Enlargement of the sella turcica is not present. The optic chiasm and infundibular are not remarkable. Prepontine and interpeduncular cisterns are not enlarged. There is no localized enlargement of the medulla or claudio. Fourth ventricle and cerebellar tonsils appear normal in position. No subacute area of hemorrhage density is seen. Mass in the cerebellopontine angle region is not evident. Globes symmetrical. Orbital musculature including medial lateral rectus muscles do not exhibit abnormality. Diffusion-weighted images demonstrate no focus of restricted diffusion. Increased white matter signal prominent Mass effect upon the ventricular system is not identified. Impression: Negative for acute hemorrhage mass effect or midline shift. No acute infarct Prominent chronic microvascular white matter change
[2025-04-28] MEDS: HEPARIN SOD INJ 5000 UNIT/ML VIAL 6500 UNIT IVP (01:29)
[2025-04-28] MEDS: Heparin/D5w 25K 250 ML Ivpb 25,000 UNIT/250 ML BAG 14.645 UNIT IV (01:30)
--- NOTE | 2025-04-28 02:21 | PC.NURSE ---
educated patient to bring medication list for med rec, per patient will tell to bring medication box.
[2025-04-28 06:27] LABS: Basophils # (Auto) 0.0 Thou/mm3 (0.0-0.2); Basophils % (Auto) 0 % (0-2.5); Eosinophils # (Auto) 0.0 Thou/mm3 (0.0-0.5); Eosinophils % (Auto) 0 % (0-10); Hematocrit 50.4 % (41.0-53.0); Hemoglobin 17.1 g/dL (13.5-16.0); Immature Granulocytes Auto 0.03 Thou/mm3 (0.00-0.00); Lymphocytes # (Auto) 0.6 Thou/mm3 (1.0-4.8); Lymphocytes % (Auto) 10 % (10-50); Mean Corpuscular HGB Conc 33.9 g/dl (31.0-37.0); Mean Corpuscular Hemoglobin 29.5 pg (25.0-35.0); Mean Corpuscular Volume 87 fL (80-100); Monocytes # (Auto) 0.1 Thou/mm3 (0.0-0.8); Monocytes % (Auto) 1 % (0-12); Neutrophils # (Auto) 5.1 Thou/mm3 (1.8-7.7); Neutrophils % (Auto) 88 % (37-80); Nucleated Red Blood Cell # 0.00 Thou/mm3 (0.00-0.00); Nucleated Red Blood Cell % 0 /100 WBC (0); Platelet Count 180 Thou/mm3 (140-440); RDW Standard Deviation 40.8 fL (35.1-43.9); Red Blood Count 5.80 Miln/mm3 (4.50-5.90); White Blood Count 5.9 Thou/mm3 (3.8-10.6)
[2025-04-28 07:01] LABS: Alanine Aminotransferase 47 U/L (10-49); Albumin, Serum 4.6 gm/dL (3.4-4.8); Albumin/Globulin Ratio 1.8 (1.2-2.2); Alkaline Phosphatase 63 U/L (46-116); Anion Gap 14 (7-16); Aspartate Amino Transferase 29 U/L (0-34); BUN/Creatinine Ratio 11 Ratio (12-20); Bilirubin,Total 0.5 mg/dL (0.3-1.2); Blood Urea Nitrogen 9 mg/dL (9-23); Calcium 9.8 mg/dL (8.3-10.6); Calcium (Corrected) 9.8 mg/dL (8.5-10.1); Carbon Dioxide 21.7 mMol/L (20.0-31.0); Cardiac Risk Estimate 2.9 RATIO (4.0-6.7); Chloride 104 mMol/L (98-107); Cholesterol 113 mg/dL (132-200); Creatinine (Component) 0.8 mg/dL (0.6-1.3); Estimated Creatinine Clearance 96.3 mL/min (>60); Globulin 2.5 gm/dL (2.3-3.5); Glucose 213 mg/dL (74-106); HDL Cholesterol 39 mg/dL (40-60); LDL Cholesterol,Calculated 63 mg/dL (0-130); Magnesium 2.0 mg/dL (1.6-2.6); Osmolality,Calculated 284 (275-295); Phosphorous 2.8 mg/dL (2.4-5.1); Potassium 4.3 mMol/L (3.4-5.1); Sodium 140 mMol/L (136-145); Total Protein 7.1 gm/dL (5.7-8.2); Triglycerides 54 mg/dL (30-150); eGFR > 60 See Note
[2025-04-28 07:21] LABS: Glucose Estimated Average 189 mg/dL (80-131); Hemoglobin A1C 8.2 % Hgb (4.8-6.0)
[2025-04-28] MEDS: INSULIN LISPRO (AdmeLOG) 1 UNIT/0.01 ML UNIT SC ×3 (07:37→17:03)
[2025-04-28] MEDS: ASPIRIN EC 81 MG TABEC PO (09:11)
[2025-04-28] MEDS: valACYclovir 500 MG TABLET (NON-FORMULARY) 1000 MG PO ×3 (09:11→22:17)
[2025-04-28 09:42] LABS: Partial Thromboplastin Time 76.9 Seconds (22.0-36.0)
--- NOTE | 2025-04-28 10:52 | PC.SS ---
Severino Sim is a 64 year-old male admitted to [facility] for [place] Palsy vs Stroke. SS conducted bedside contact with the patient to complete initial assessment and to discuss discharge planning. Role and reason explained. Patient confirmed demographic information. Patient identifies his Heaven Vera [phone] as his surrogate decision maker. Pt states he is able to complete all ADL?s independent. Pt does not possesses any DME. Pts PCP is Gibran Sandy. Pharmacy of choice is [facility]. Discharge options discussed and the pt wishes to return home.? Pt dtr will provide transport. No further intervention required at this time, social media content specialist would be available to address any further concerns. DC Plan: Home Contact: Heaven Address: Confirmed on face sheet PCP: Vika
--- NOTE | 2025-04-28 11:14 | PC.PT ---
PT eval witheld today. Patient just started heparin this morning due to DVT. It will be best to initiate mobility 24 hours after the first dose of heparin. RN made aware.
--- NOTE | 2025-04-28 13:14 | ESPR_ITS ---
<Statement entered by Ivette Kingsley MD - 04/29/25 19:49> I have reviewed the note and agree with the resident's assessment & plan with exceptions as below. I have personally reviewed labs, imaging, home meds/prior records, examined the patient, formulated and discussed management plan with the IM team. Pt examined at bedside today. No acute overnight events. Pt admitted for CVA rule out, pending MRI at this time. Will initiate valacyclovir at this time due to concern for CN palsy. Neuro on consullt, appreciate recommendations. Holding heparin drip at this time, although pt does have afib, will need to wait due to concern for possible hemorrhagic conversion if pt did have stroke. Superficial femoral vein DVT found, however, will continue to hold A/C at this time. Repeat hematology and chemistry in AM. Ivette Kingsley, PGY-2 Internal Medicine Documentation for date of: 04/28/25 Subjective Subjective Interval history: No acute events overnight. Patient was examined at bedside. Vital signs and labs reviewed. Patient reports he has had intermittent disequilibrium concerns for about 1 week. 3 days ago, he noticed decreased taste and tongue numbness, and diarrhea (only in the AM). He states stool will be solid in the evening. He states that yesterday, he had right facial droop, incomplete eye closure, difficulty spitting, headache (frontal and occipital regions), mild diaphoresis, and flashing in his vision of his right eye. Today, patient reports he feels somewhat improved, although continues to note numbness of the upper lip and right side of tongue. He states he continues to notice some difficulty with spitting. He denies any difficulties with swallowing, fever, chills, nausea, or vomiting. Denies any rashes. He reports flea or tick bite a few weeks ago on the right lateral thigh and notes there are many ticks around the area his lives at. He denies any other recent illnesses, cold symptoms, or recent travel history. Exam Vital Signs Temp Pulse Resp BP Pulse Ox O2 Del Method 98.4 F 92 19 141/84 H 97 Room Air 04/28/25 12:00 04/28/25 12:00 04/28/25 12:00 04/28/25 12:00 04/28/25 12:00 04/28/25 12:00 Narrative Exam GENERAL: A&OX3. No acute distress. Not diaphoretic. HEENT: Normocephalic. Moist mucous membranes. No scleral icterus. EOMI CV: Regular rate and rhythm. S1 and S2 heard. No murmurs. PULM: No accessory muscle use. CTAB. No wheezing or crackles. ABDOMEN: Soft and non-distended. No tenderness to palpation of all quadrants. No rebound or guarding. EXTREMITIES: No lower extremity edema SKIN: Warm and dry. NEURO: Asymmetry of smile and eyebrow raise. Right facial droop. 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 No aphasia. Present and equal sensation bilaterally of upper and lower face, upper extremities, and lower extremities. 5/5 strength of bilateral UE and LE. Moving all extremities spontaneously. Ambulating without assistance. PSYCH: Cooperative with exam. Objective Labs 04/29/25 05:49 04/29/25 05:49 Labs: Laboratory Results - last 24 hr 04/27/25 04/27/25 04/28/25 16:57 17:23 04:56 WBC 9.3 5.9 RBC 5.83 5.80 Hgb 17.1 H 17.1 H Hct 50.6 50.4 MCV 87 87 MCH 29.3 29.5 MCHC 33.8 33.9 RDW Std Deviation 40.2 40.8 Plt Count 212 180 D Neut % (Auto) 80 88 H Lymph % (Auto) 11 10 [place] % (Auto) 7 1 Eos % (Auto) 1 0 Baso % (Auto) 1 0 Neut # (Auto) 7.5 5.1 Lymph # (Auto) 1.1 0.6 L [place] # (Auto) 0.6 0.1 Eos # (Auto) 0.1 0.0 Baso # (Auto) 0.1 0.0 Immature Gran # (Auto) 0.03 H 0.03 H Absolute Nucleated RBC 0.00 0.00 Immature Gran % 0 1 H Nucleated RBC % 0 0 PT 12.5 H INR 1.2 APTT 27.8 Sodium 140 140 Potassium 4.0 4.3 Chloride 103 104 Carbon Dioxide 26.0 21.7 Anion Gap 11 14 BUN 11 9 Creatinine 0.8 0.8 Estim Creat Clear Calc 96.3 96.3 eGFR > 60 > 60 BUN/Creatinine Ratio 14 11 L Glucose [address] Glu mg/dL 189 H Hemoglobin A1c 8.2 H Calculated Osmolality 281 284 Calcium 10.2 9.8 Corrected Calcium 10.2 H 9.8 Phosphorus 2.8 Magnesium 1.3 L 2.0 Total Bilirubin 0.6 0.5 AST 39 H 29 ALT 58 H 47 Alkaline Phosphatase 71 63 Total Protein 7.3 7.1 Albumin 4.9 H 4.6 Globulin 2.4 2.5 Albumin/Globulin Ratio 2.0 1.8 Triglycerides 54 Cholesterol 113 L LDL Cholesterol, Calc 63 HDL Cholesterol 39 L Cholesterol/HDL Ratio 2.9 L Ur Collection Type Clean Catch Urine Color Colorless A Urine Clarity Clear Urine pH 6.5 Ur Specific [place] 1.011 Urine Protein Negative Urine Glucose (UA) 4+ A Urine Ketones Negative Urine Blood Negative Urine Nitrite Negative Urine Bilirubin Negative Urine Urobilinogen (Auto) Negative Ur Leukocyte Esterase Negative Urine RBC 0 Urine WBC 0 Ur Squamous Epith Cells 0 Urine Bacteria None Urine Opiates Screen Negative Urine Fentanyl Screen Negative Ur Barbiturates Screen Negative U Amphetamin/Meth Scrn Negative U Benzodiazepines Scrn Negative U Cocaine Metab Screen Negative U Marijuana (THC) Screen Negative 04/28/25 07:56 WBC RBC Hgb Hct MCV MCH MCHC RDW Std Deviation Plt Count Neut % (Auto) Lymph % (Auto) [place] % (Auto) Eos % (Auto) Baso % (Auto) Neut # (Auto) Lymph # (Auto) [place] # (Auto) Eos # (Auto) Baso # (Auto) Immature Gran # (Auto) Absolute Nucleated RBC Immature Gran % Nucleated RBC % PT INR APTT 76.9 H D Sodium Potassium Chloride Carbon Dioxide Anion Gap BUN Creatinine Estim Creat Clear Calc eGFR BUN/Creatinine Ratio Glucose Estimated Ave Glu mg/dL Hemoglobin A1c Calculated Osmolality Calcium Corrected Calcium Phosphorus Magnesium Total Bilirubin AST ALT Alkaline Phosphatase Total Protein Albumin Globulin Albumin/Globulin Ratio Triglycerides Cholesterol LDL Cholesterol, Calc HDL Cholesterol Cholesterol/HDL Ratio Ur Collection Type Urine Color Urine Clarity Urine pH Ur Specific [place] Urine Protein Urine Glucose (UA) Urine Ketones Urine Blood Urine Nitrite Urine Bilirubin Urine Urobilinogen (Auto) Ur Leukocyte Esterase Urine RBC Urine WBC Ur Squamous Epith Cells Urine Bacteria Urine Opiates Screen Urine Fentanyl Screen Ur Barbiturates Screen U Amphetamin/Meth Scrn U Benzodiazepines Scrn U Cocaine Metab Screen U Marijuana (THC) Screen Quality Measures Quality Measures VTE therapy Assessment & Plan Assessment Current Active Medications: Generic Name Dose Route Start Last Admin Trade Name Freq PRN Reason Stop Dose Admin Acetaminophen 650 mg 04/27/25 21:10 Acetaminophen 325 Mg Tablet PO 05/27/25 21:09 Q6H PRN Fever >100.4 Acetaminophen 650 mg 04/27/25 21:10 Acetaminophen 325 Mg Tablet PO 05/27/25 21:09 Q6H PRN PAIN SCALE 1-3 (mild Aspirin 81 mg 04/28/25 09:00 04/28/25 09:11 Aspirin Ec 81 Mg Tabec PO 05/28/25 08:59 81 mg QDAY SHALOM Administration Atorvastatin Calcium 80 mg 04/28/25 21:00 Atorvastatin Calcium 20 Mg Tablet PO 05/28/25 20:59 HS SHALOM Dextrose 25 ml 04/27/25 21:10 Dextrose 50%-Water Inj 50 Ml Syringe IV 05/27/25 21:09 Q15MIN PRN BG 50-70 responsive npo pt Dextrose 50 ml 04/27/25 21:10 Dextrose 50%-Water Inj 50 Ml Syringe IV 05/27/25 21:09 Q15MIN PRN BG <50 OR BG <70 & pt unresponsive Diazepam 2 mg 04/28/25 09:53 Diazepam Inj 5 Mg/Ml Vial 2 Ml IVP 05/03/25 09:52 X1 PRN Claustrophobia Glucagon 1 mg 04/27/25 21:10 Glucagon Inj 1 Mg Vial IM Q15MIN PRN BG <70, and no IV access Heparin Sodium/Dextrose 25,000 unit in 250 mls @ 14.645 mls/hr 04/28/25 01:15 04/28/25 11:19 Heparin In D5w Ivpb IV 05/12/25 01:14 0 units/kg/hr .Q17H5M SHALOM 0 mls/hr Titration Protocol 18 UNITS/KG/HR Insulin Degludec 40 unit 04/27/25 22:15 04/27/25 22:23 Insulin Degludec 5 Unit/0.05 Ml (Per 5 Units) SC 05/27/25 22:14 40 unit HS SHALOM Administration Insulin Human Lispro 0 unit 04/28/25 07:30 04/28/25 11:29 Insulin Lispro (Admelog) 1 Unit/0.01 Ml Unit SC 05/28/25 07:29 1 unit AC SHALOM Administration Protocol Ondansetron HCl 4 mg 04/27/25 21:10 Ondansetron Inj 2 Mg/Ml Inj 2 Ml IVP 05/27/25 21:09 Q6H PRN NAUSEA OR VOMITING Protocol Pantoprazole Sodium 40 mg 04/28/25 09:00 04/28/25 09:11 Pantoprazole Inj 40 Mg Vial IVP 05/28/25 08:59 40 mg QDAY SHALOM Administration Prednisone 60 mg 04/28/25 09:00 04/28/25 09:11 Prednisone 20 Mg Tablet PO 05/04/25 21:06 60 mg QDAY SHALOM Administration Valacyclovir HCl 1,000 mg 04/28/25 08:30 04/28/25 09:11 Valacyclovir 500 Mg Tablet (Non-Formulary) PO 05/04/25 22:01 1,000 mg TID SHALOM Administration Plan Assessment 64 year old male with PMH of CAD, HTN, DM2, HLD, prior A-fib (off anticoagulation due to prior major bleed), remote DVT, carotid stenosis, admitted for stroke rule out due to right facial droop. 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 Patient placed in observation on telemetry. 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 Stroke less likely, but not excluded. Other differentials include Lyme disease, given recent flea/tick bite and possible Brown's palsy, although patient denies rash. Passed swallow evaluation. Cleared by PT. MRI brain pending. Plan: - Observation on telemetry - MRI brain ordered, f/u - echo ordered, f/u - ASA 81 mg po QD - prednisone 60 mg po QD x 7 days (04/28-) - valacyclovir 1g TID x 7 days (04/28-) - Neuro checks q4h - Neurology consulted, appreciate recs. # DVT of right superficial femoral vein RLE duplex: positive for acute DVT in R SFV. History of remote untreated DVT. Plan: - Hold heparin drip for now, given hx GI bleed and DVT on duplex may be chronic instead of acute - Cardiology and Neurology consulted regarding long-term anticoagulation, given hx GI bleed and stroke risk # Atrial fibrillation (not on anticoag) History of paroxysmal A-fib, currently in NSR. Previously on anticoagulation, stopped 2?3 years ago after GI bleed with Hgb dropping to 6, source unidentified. CHADS-VASc >4, anticoagulation indicated Has-bled score 1, Patient has relatively low risk for major bleeding Plan: - Telemetry - Hold heparin for now - Cardiology consulted, appreciate recs # Carotid artery stenosis CTA head/neck: 40?60% L ICA stenosis, ~50% bilateral juxtasellar ICA stenosis. No LVO. Some decrease in filling of R MCA trifurcation vessels. Plan: - ASA 81 mg po QD - atorvastatin 80 mg po QD - Monitor for TIA/stroke symptoms # Coronary artery disease S/p stent (2017) Stable, EKG with old septal infarct, no acute ischemia. Plan: - ASA 81 mg po QD - atorvastatin 80 mg po QD - Hold on restarting home losartan for now - Telemetry # Insulin-dependent Type 2 Diabetes mellitus Per patient, on insulin glargine 50 units nightly, lispro 12 units with meals, metformin. A1c 8.2% on 04/28/25. Plan: - Increase insulin degludec from 40 units to 45 units qHS - SSI - Hold metformin while inpatient - Monitor closely given current steroid therapy (prednisone 60 mg po QD) # Hypertension Home regimen: losartan 100 mg po QD Plan: - Hold on restarting home losartan for now # Hyperlipidemia Plan: - atorvastatin 80 mg po QD # Erythrocytosis Hgb 17.1 on 04/28/25. Also elevated in 05/2024 and 10/2024 (Hgb 18.1). Uncertain etiology. Plan: - Continue to trend CBC. Health maintenance: Disposition: Observation on telemetry Diet: Cardiac + carb consistent Anticoagulation: Hold on heparin drip for now GI prophylaxis: Protonix Neuro checks: q4h Code Status: Full Code Case discussed with my attending Dr. Corey, and senior resident, Dr. Teetee Kong, OMS4 Attending Provider Attestation/Addendum I have examined the patient, reviewed labs and imaging findings, discussed the case with the resident(s), and reviewed entered orders. I agree with the plan of care as outlined in this note, with these additional summaries/recommendations: Patient seen at bedside. No acute overnight events. Patient still has mild facial asymmetry. Etiology for strokelike symptoms is acute CVA versus Brown's palsy. CT head without contrast and CTA head and neck relatively within normal limits except for some decrease in filling of the right middle cerebral artery. Patient is pending MRI brain and echocardiogram with bubble study. In-house neurology consulted, recommendations appreciated. Continue aspirin 81 mg daily and statin therapy. Continue empiric treatment for possible Brown's palsy with steroids and acyclovir. Continue insulin sliding scale with Accu-Cheks for diabetes mellitus type 2. Patient was found to have superficial deep vein thrombosis and has chronic atrial fibrillation. Was originally placed on heparin gtt. for elevated [id number] score and DVT although we will hold until MRI complete. Mild hypomagnesia present and replacement given, follow-up repeat level. Patient updated on the plan and in agreement. All questions answered to satisfaction. Please see residents note for additional details and management. Dr. Leora MD
--- NOTE | 2025-04-28 14:25 | PD.RESPRO ---
Documentation for date of: 04/28/25 Exam Vital Signs Temp Pulse Resp BP Pulse Ox O2 Del Method 98.4 F 92 19 141/84 H 97 Room Air 04/28/25 12:00 04/28/25 12:00 04/28/25 12:00 04/28/25 12:00 04/28/25 12:00 04/28/25 12:00 Objective Labs 04/28/25 04:56 04/28/25 04:56 Labs: Laboratory Results - last 24 hr 04/27/25 04/27/25 04/28/25 16:57 17:23 04:56 WBC 9.3 5.9 RBC 5.83 5.80 Hgb 17.1 H 17.1 H Hct 50.6 50.4 MCV 87 87 MCH 29.3 29.5 MCHC 33.8 33.9 RDW Std Deviation 40.2 40.8 Plt Count 212 180 D Neut % (Auto) 80 88 H Lymph % (Auto) 11 10 [place] % (Auto) 7 1 Eos % (Auto) 1 0 Baso % (Auto) 1 0 Neut # (Auto) 7.5 5.1 Lymph # (Auto) 1.1 0.6 L [place] # (Auto) 0.6 0.1 Eos # (Auto) 0.1 0.0 Baso # (Auto) 0.1 0.0 Immature Gran # (Auto) 0.03 H 0.03 H Absolute Nucleated RBC 0.00 0.00 Immature Gran % 0 1 H Nucleated RBC % 0 0 PT 12.5 H INR 1.2 APTT 27.8 Sodium 140 140 Potassium 4.0 4.3 Chloride 103 104 Carbon Dioxide 26.0 21.7 Anion Gap 11 14 BUN 11 9 Creatinine 0.8 0.8 Estim Creat Clear Calc 96.3 96.3 eGFR > 60 > 60 BUN/Creatinine Ratio 14 11 L Glucose [address] Glu mg/dL 189 H Hemoglobin A1c 8.2 H Calculated Osmolality 281 284 Calcium 10.2 9.8 Corrected Calcium 10.2 H 9.8 Phosphorus 2.8 Magnesium 1.3 L 2.0 Total Bilirubin 0.6 0.5 AST 39 H 29 ALT 58 H 47 Alkaline Phosphatase 71 63 Total Protein 7.3 7.1 Albumin 4.9 H 4.6 Globulin 2.4 2.5 Albumin/Globulin Ratio 2.0 1.8 Triglycerides 54 Cholesterol 113 L LDL Cholesterol, Calc 63 HDL Cholesterol 39 L Cholesterol/HDL Ratio 2.9 L Ur Collection Type Clean Catch Urine Color Colorless A Urine Clarity Clear Urine pH 6.5 Ur Specific [place] 1.011 Urine Protein Negative Urine Glucose (UA) 4+ A Urine Ketones Negative Urine Blood Negative Urine Nitrite Negative Urine Bilirubin Negative Urine Urobilinogen (Auto) Negative Ur Leukocyte Esterase Negative Urine RBC 0 Urine WBC 0 Ur Squamous Epith Cells 0 Urine Bacteria None Urine Opiates Screen Negative Urine Fentanyl Screen Negative Ur Barbiturates Screen Negative U Amphetamin/Meth Scrn Negative U Benzodiazepines Scrn Negative U Cocaine Metab Screen Negative U Marijuana (THC) Screen Negative 04/28/25 07:56 WBC RBC Hgb Hct MCV MCH MCHC RDW Std Deviation Plt Count Neut % (Auto) Lymph % (Auto) [place] % (Auto) Eos % (Auto) Baso % (Auto) Neut # (Auto) Lymph # (Auto) [place] # (Auto) Eos # (Auto) Baso # (Auto) Immature Gran # (Auto) Absolute Nucleated RBC Immature Gran % Nucleated RBC % PT INR APTT 76.9 H D Sodium Potassium Chloride Carbon Dioxide Anion Gap BUN Creatinine Estim Creat Clear Calc eGFR BUN/Creatinine Ratio Glucose Estimated Ave Glu mg/dL Hemoglobin A1c Calculated Osmolality Calcium Corrected Calcium Phosphorus Magnesium Total Bilirubin AST ALT Alkaline Phosphatase Total Protein Albumin Globulin Albumin/Globulin Ratio Triglycerides Cholesterol LDL Cholesterol, Calc HDL Cholesterol Cholesterol/HDL Ratio Ur Collection Type Urine Color Urine Clarity Urine pH Ur Specific [place] Urine Protein Urine Glucose (UA) Urine Ketones Urine Blood Urine Nitrite Urine Bilirubin Urine Urobilinogen (Auto) Ur Leukocyte Esterase Urine RBC Urine WBC Ur Squamous Epith Cells Urine Bacteria Urine Opiates Screen Urine Fentanyl Screen Ur Barbiturates Screen U Amphetamin/Meth Scrn U Benzodiazepines Scrn U Cocaine Metab Screen U Marijuana (THC) Screen Quality Measures Quality Measures VTE therapy Assessment & Plan Assessment Current Active Medications: Generic Name Dose Route Start Last Admin Trade Name Freq PRN Reason Stop Dose Admin Acetaminophen 650 mg 04/27/25 21:10 Acetaminophen 325 Mg Tablet PO 05/27/25 21:09 Q6H PRN Fever >100.4 Acetaminophen 650 mg 04/27/25 21:10 Acetaminophen 325 Mg Tablet PO 05/27/25 21:09 Q6H PRN PAIN SCALE 1-3 (mild Aspirin 81 mg 04/28/25 09:00 04/28/25 09:11 Aspirin Ec 81 Mg Tabec PO 05/28/25 08:59 81 mg QDAY SHALOM Administration Atorvastatin Calcium 80 mg 04/28/25 21:00 Atorvastatin Calcium 20 Mg Tablet PO 05/28/25 20:59 HS SHALOM Dextrose 25 ml 04/27/25 21:10 Dextrose 50%-Water Inj 50 Ml Syringe IV 05/27/25 21:09 Q15MIN PRN BG 50-70 responsive npo pt Dextrose 50 ml 04/27/25 21:10 Dextrose 50%-Water Inj 50 Ml Syringe IV 05/27/25 21:09 Q15MIN PRN BG <50 OR BG <70 & pt unresponsive Diazepam 2 mg 04/28/25 09:53 Diazepam Inj 5 Mg/Ml Vial 2 Ml IVP 05/03/25 09:52 X1 PRN Claustrophobia Glucagon 1 mg 04/27/25 21:10 Glucagon Inj 1 Mg Vial IM Q15MIN PRN BG <70, and no IV access Heparin Sodium/Dextrose 25,000 unit in 250 mls @ 14.645 mls/hr 04/28/25 01:15 04/28/25 11:19 Heparin In D5w Ivpb IV 05/12/25 01:14 0 units/kg/hr .Q17H5M SHALOM 0 mls/hr Titration Protocol 18 UNITS/KG/HR Insulin Degludec 40 unit 04/27/25 22:15 04/27/25 22:23 Insulin Degludec 5 Unit/0.05 Ml (Per 5 Units) CT 05/27/25 22:14 40 unit HS SHALOM Administration Insulin Human Lispro 0 unit 04/28/25 07:30 04/28/25 11:29 Insulin Lispro (Admelog) 1 Unit/0.01 Ml Unit SC 05/28/25 07:29 1 unit AC SHALOM Administration Protocol Ondansetron HCl 4 mg 04/27/25 21:10 Ondansetron Inj 2 Mg/Ml Inj 2 Ml IVP 05/27/25 21:09 Q6H PRN NAUSEA OR VOMITING Protocol Pantoprazole Sodium 40 mg 04/28/25 09:00 04/28/25 09:11 Pantoprazole Inj 40 Mg Vial IVP 05/28/25 08:59 40 mg QDAY SHALOM Administration Prednisone 60 mg 04/28/25 09:00 08/18/25 09:11 Prednisone 20 Mg Tablet PO 05/04/25 21:06 60 mg QDAY SHALOM Administration Valacyclovir HCl 1,000 mg 04/28/25 08:30 04/28/25 14:25 Valacyclovir 500 Mg Tablet (Non-Formulary) PO 05/04/25 22:01 1,000 mg TID SHALOM Administration
--- NOTE | 2025-04-28 15:18 | PC.PT ---
Patient was cleared by Dr. Quijano to ambualate. Patient refused blood thinner due to risk of GI bleed. Attempt to intiate PT evaluation at 1500. Patient states that he was already ambulating to the restroom and back. This PT were able to assess the patient ambulating to the door and back to his bed independently, No LOB and no unsteadiness. As per patient, the plantar surface of his feet has chronic sensitivity. No further needs at this time. Will cancel PT evaluation. Patient is I with transfers and ambulation without AD.
--- NOTE | 2025-04-28 16:34 | ESCONSULT_ITS ---
HPI Data of Consult Requesting Physician: Tomy Corey MD Admitting Provider: Matthew Conteh MD Attending Provider: Tomy Corey MD Primary Care Provider: Gibran Sandy PA-C Consult Narrative History of present illness: CC: right facial droop Patient is a 64-year-old male with a past medical history of hypertension, hyperlipidemia, CAD status post stents (2017), diabetes mellitus type 2 insulin- dependent, history of paroxysmal atrial fibrillation, and history of DVT (?). Patient presented to the emergency room with a chief complaint of headache, vision changes and right facial droop. Patient stated he first noted paresthesias on the left facial area and numbness with decreased taste on left side of the tongue over the past 3 days. Patient became concerned last night when he noticed a left facial droop. Patient denied previous stroke history. Patient denied previous bowel palsy history. Patient denied any recent sick contacts or fevers. Patient denied any palpitations or chest pain. Patient denied abdominal tenderness. Previous retinal clot unclear if it is atherosclerotic or hematological in nature, but right eye has possible macular vision loss which is chronic. Patient describes center of images appear blurry and distorted. Patient is concerned of previous DVT, but last venous Doppler study was done on 04/04/2023 which showed negative DVT history. Patient dysarthria. Patient denied upper or lower extremity weakness. Denied long travel or airplane. No history of hypercoaguable state. Denied family history of DVTS. ER Coruse: Vitals: 151/95, HR 87, RR 20 T 98.0, spO2 95% RA CT head negative for acute infarct/bleed. CTA showed 40?60% left ICA stenosis, ~50% bilateral juxtasellar ICA stenosis, no large vessel occlusion. Labs largely unremarkable except Mg 1.3. EKG NSR, LAD, Q waves V1?V2, nonspecific T-wave changes. 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 They recommended MRI brain with CN protocol, ASA, DVT prophylaxis, and consideration of steroids/antivirals. Tele neuro consluted concern for [place] Palsy, recommendations Prednisone and Valacyclovir. PMH: same as above PSH: Previous olson injury with hourse, decrease sensation on right olson as compared to left, previous knee surger-patient unsure but denired arthroplasty, Previous Stent 2016 Medication: Losartan 100 mg, Atorvastatin 20 mg, Asprin 81 mg once daily, Metformin 1000mg BID, Jardiance 25 mg once daily, Glargine 60 units (recently increased by PCP), and Lispro Family history: denied history of stroke or hypercoaguable disease Neuro consulted. cc:: cc: Tomy Corey MD Review of Systems Review of Systems Narrative Review of Systems: General appearance: NO weight change, NO fatigue, NO weakness, NO fever, NO chills, NO night sweats, No cough Skin: NO rash, NO itching, NO sores, NO moles HEENT: NO Trauma, NO nausea, NO vomiting, yes visual changes CHRONIC, NO blurry vision, NO double vision, NO tinnitus, left ear did feel congested 1 week ago, NO vertigo, NO ear discharge, NO rhinorrhea, NO stuffiness, NO sneezing, NO allergy, NO epistaxis. NO Hoarseness, NO sore throat, NO swollen neck. Cardiac: NO Palpitations, NO dyspnea on exertion, NO orthopnea, NO paroxysmal nocturnal dyspnea, NO edema Respiratory: NO Shortness of Breath, NO Wheezing, NO Cough, NO Sputum, NO hemoptysis GI:NO appetite, NO nausea, NO vomiting, NO dysphagia, NO changes in bowel frequency, NO stool color, NO diarrhea, NO constipation, NO hemetemesis, NO hemorrhoids, NO melena, NO hematechezia, NO abdominal pain, NO jaundice Renal: NO frequency, NO hesitancy, NO urgency, NO hematuria, NO nocturia, NO incontinence MSK: NO muscle weakness, NO gout, NO arthritis, NO muscle stiffness Neuro: NO headaches, NO tremors, NO weakness, NO paralysis, NO seizures, NO loss of consciousness, yes right lower extremity numbness, Chronic. decreased sensation to oral mucosa and tongue Hem: NO anemia, NO easy bruising/bleeding, NO petechiae, NO purpura Endo: NO heat/cold intolerance, NO excessive sweating, NO polyuria, NO polydipsia, NO polyphagia, NO thyroid problems, Yes diabetes Pysch: NO mood, NO anxiety, NO depression Exam Vital Signs Temp Pulse Resp BP Pulse Ox O2 Del Method 98.4 F 92 19 141/84 H 97 Room Air 04/28/25 12:00 08/18/25 16:00 04/28/25 12:00 04/28/25 12:00 04/28/25 12:00 04/28/25 12:00 Narrative Exam General Appearance: Alert & Oriented X3, well-nourished male who is lying in bed in no acute distress HEENT: Skull symmetrical and atraumatic. Conjunctivae pin and moist. Pupils equal, round, reactive to light and accommodation (PERRL). External ear without lesion or discharge. Straight, nares patient, mucosa pink, no discharge. No thyroid nodule appreciated. No cervical lymphadenopathy. Cardio: Normal Rate and Rhythm with S1 and S2 heart sounds. No murmurs or extra heart sounds auscultated. No bruits on carotid auscultation. No peripheral edema or cyanosis. Lungs: Symmetric with good expansion. Chest and back non-tender. Breath sounds vesicular without crackles, wheezing or rhonchi Abdomen: Non-tender, Non-distended, Normal Reactive Bowel Sounds Neuro: Yes Alert, Yes cooperative, YEs oriented to person, Yes place, and Yes time. Speech clear. CN grossly intact. Upper motor strength 5/5 and Lower motor strength 5/5. Right olson decrease sensation. Right nasal depression. Results Labs 04/29/25 05:49 04/29/25 05:49 Labs: Short CBC 04/27/25 04/28/25 Range/Units 16:57 04:56 WBC 9.3 5.9 (3.8-10.6) Thou/mm3 Hgb 17.1 H 17.1 H (13.5-16.0) g/dL Hct 50.6 50.4 (41.0-53.0) % Plt Count 212 180 D (140-440) Thou/mm3 BMP 04/27/25 04/28/25 16:57 04:56 Sodium 140 140 Potassium 4.0 4.3 Chloride 103 104 Carbon Dioxide 26.0 21.7 BUN 11 9 Creatinine 0.8 0.8 Glucose 152 H 213 H D Calcium 10.2 9.8 Liver Function 04/27/25 04/28/25 Range/Units 16:57 04:56 Total Bilirubin 0.6 0.5 (0.3-1.2) mg/dL AST 39 H 29 (0-34) U/L ALT 58 H 47 (10-49) U/L Alkaline Phosphatase 71 63 (46-116) U/L Albumin 4.9 H 4.6 (3.4-4.8) gm/dL Urine 04/27/25 Range/Units 17:23 Urine Color Colorless A (Lt Yel-Yel) Urine Clarity Clear (Clear/Hazy) Urine pH 6.5 (5.0-7.0) Ur Specific [place] 1.011 (1.001-1.035) Urine Protein Negative (Neg - Trace) Urine Glucose (UA) 4+ A (Negative) Quality Measures Quality Measures VTE therapy Medications Home Medications and Allergies Home Medications ?Medication ?Instructions ?Recorded ?Confirmed ?Type aspirin 81 mg tablet,delayed 81 mg PO QDAY ##0 6 04/28/25 History release (Aspir-) metformin 1,000 mg tablet 1,000 mg PO BID #0 tabs 12/2604/28/25 History (Glucophage) montelukast 10 mg tablet 10 mg PO QDAY 06/07/1904/28 History insulin aspart U-100 100 unit/mL See Rx Instructions . Route .COMPLEX 07/29/22 04/28/25 History (3 mL) subcutaneous pen (Novolog FlexPen U-100 Insulin aspart) insulin glargine 100 unit/mL (3 See Rx Instructions .R oute .COMPLEX 07/29/22 04/28/25 History mL) subcutaneous pen (Lantus Solostar U-100 Insulin) empagliflozin 25 mg tablet 25 mg PO QDAY 12/01/2304/11 History (Jardiance) losartan 50 mg tablet 100 mg PO QDAY 12/01/2304/11 History atorvastatin 20 mg tablet 20 mg PO DAILY 04/28/2504/11 History Allergies Allergy/AdvReac Type Severity Reaction Status Date / Time Penicillins Allergy Severe Flushing Verified 04/27/25 16:10 Visit Medications Acetaminophen (Acetaminophen 325 Mg Tablet) 650 mg PO Q6H PRN PRN Reason: Fever >100.4 Stop: 05/27/25 21:09 Acetaminophen (Acetaminophen 325 Mg Tablet) 650 mg PO Q6H PRN PRN Reason: PAIN SCALE 1-3 (mild Stop: 05/27/25 21:09 Aspirin (Aspirin Ec 81 Mg Tabec) 81 mg PO QDAY [facility] Stop: 05/28/25 08:59 Last Admin: 04/28/25 09:11 Dose: 81 mg Atorvastatin Calcium (Atorvastatin Calcium 20 Mg Tablet) 80 mg PO HS [facility] Stop: 05/28/25 20:59 Dextrose (Dextrose 50%-Water Inj 50 Ml Syringe) 25 ml IV Q15MIN PRN PRN Reason: BG 50-70 responsive npo pt Stop: 05/27/25 21:09 Dextrose (Dextrose 50%-Water Inj 50 Ml Syringe) 50 ml IV Q15MIN PRN PRN Reason: BG <50 OR BG <70 & pt unresponsive Stop: 05/27/25 21:09 Diazepam (Diazepam Inj 5 Mg/Ml Vial 2 Ml) 2 mg IVP X1 PRN PRN Reason: Claustrophobia Stop: 05/03/25 09:52 Glucagon (Glucagon Inj 1 Mg Vial) 1 mg IM Q15MIN PRN PRN Reason: BG <70, and no IV access Heparin Sodium/Dextrose (Heparin In D5w Ivpb) 25,000 unit in 250 mls @ 14.645 mls/hr IV .Q17H5M [facility]; Protocol Stop: 05/12/25 01:14 Last Titration: 04/28/25 11:19 Dose: 0 units/kg/hr, 0 mls/hr Insulin Degludec (Insulin Degludec 5 Unit/0.05 Ml (Per 5 Units)) 45 unit SC [facility] Stop: 05/28/25 20:59 Insulin Human Lispro (Insulin Lispro (Admelog) 1 Unit/0.01 Ml Unit) 0 unit SC [facility]; Protocol Stop: 05/28/25 07:29 Last Admin: 04/28/25 11:29 Dose: 1 unit Ondansetron HCl (Ondansetron Inj 2 Mg/Ml Inj 2 Ml) 4 mg IVP Q6H PRN; Protocol PRN Reason: NAUSEA OR VOMITING Stop: 05/27/25 21:09 Pantoprazole Sodium (Pantoprazole Inj 40 Mg Vial) 40 mg IVP QDAY [facility] Stop: 05/28/25 08:59 Last Admin: 04/28/25 09:11 Dose: 40 mg Prednisone (Prednisone 20 Mg Tablet) 60 mg PO QDAY [facility] Stop: 05/04/25 21:06 Last Admin: 04/28/25 09:11 Dose: 60 mg Valacyclovir HCl (Valacyclovir 500 Mg Tablet (Non-Formulary)) 1,000 mg PO TID [facility] Stop: 05/04/25 22:01 Last Admin: 04/28/25 14:25 Dose: 1,000 mg Discontinued Medications Acyclovir (Acyclovir 800 Mg Tablet) 800 mg PO X1 ONE Stop: 04/27/25 18:42 Last Admin: 04/27/25 20:25 Dose: 800 mg Aspirin (Aspirin 81 Mg Chew) 81 mg PO X1 ONE Stop: 04/27/25 18:42 Last Admin: 04/27/25 20:25 Dose: 81 mg Dexamethasone (Dexamethasone 4 Mg Tablet) 8 mg PO X1 ONE; Protocol Stop: 04/27/25 19:01 Last Admin: 04/27/25 20:25 Dose: 8 mg Heparin Sodium (Porcine) (Heparin Sod Inj 5000 Unit/Ml Vial) 5,000 unit SC Q12HR [facility] Stop: 05/12/25 08:59 Heparin Sodium (Porcine) (Heparin Sod Inj 5000 Unit/Ml Vial) 6,800 unit 80 unit/kg (6800 unit) IV X1 ONE; Protocol Stop: 04/28/25 00:36 Last Admin: 04/28/25 01:46 Dose: Not Given Heparin Sodium (Porcine) (Heparin Sod Inj 5000 Unit/Ml Vial) 6,500 unit IVP X1 ONE Stop: 04/28/25 01:11 Last Admin: 04/28/25 01:29 Dose: 6,500 unit Magnesium Sulfate/Dextrose (Magnesium Sulfate Ivpb) 1 gm in 100 mls @ 100 mls/hr IV X1 ONE Stop: 04/27/25 19:04 Last Infusion: 04/27/25 19:55 Dose: Infused Magnesium Sulfate (Magnesium Sulfate Ivpb) 4 gm in 50 mls @ 12.5 mls/hr IV X1 ONE Stop: 04/28/25 01:25 Last Admin: 04/27/25 21:58 Dose: 12.5 mls/hr Insulin Degludec (Insulin Degludec 5 Unit/0.05 Ml (Per 5 Units)) 40 unit SC ACHS [facility] Stop: 05/27/25 22:14 Insulin Degludec (Insulin Degludec 5 Unit/0.05 Ml (Per 5 Units)) 40 unit SC HS [facility] Stop: 05/27/25 22:14 Last Admin: 04/27/25 22:23 Dose: 40 unit Insulin Glargine (Insulin Glargine (Lantus) 5 Unit/0.05 Ml (Per 5 Units)) 40 unit SC HS [facility] Stop: 05/27/25 21:24 Last Admin: 04/27/25 22:19 Dose: Not Given Magnesium Oxide (Magnesium Oxide 400 Mg Tablet) 400 mg PO X1 ONE Stop: 04/27/25 18:05 Last Admin: 04/27/25 18:16 Dose: Not Given Pantoprazole Sodium (Pantoprazole Inj 40 Mg Vial) 40 mg IVP X1 ONE Stop: 04/28/25 00:36 Last Admin: 04/28/25 01:31 Dose: 40 mg Assessment & Plan Plan Patient is a 64-year-old male with a past medical history of hypertension, hyperlipidemia, CAD status post stents (2016), diabetes mellitus type 2 insulin- dependent, history of paroxysmal atrial fibrillation who was admitted for right facial droop and stroke rule out. #Right Facial Droop #CVA Matthias out Per chart review patient presented with decreased and upper and lower CN VII motor funciton. Per tele neuro patient was started on [place] treatment. Patient examined at bedside, upper facial CN VII motor function intact, thus consider stroke vs TIA ASCVD 16.9% of cardioevent in the next 10 years, high intensity recommended, LDL 63, consider 20 or 40 mg HS given improved LDL and concern for bells palsy. Plan -MRI Pending -Echo Pending -Resume Atorvastatin 20 mg PO or Atorvastain 40 mg HS, increase to 80 mg PO HS if positive MRI continue Aspirin 81 mg PO -Consider gabapentin for diabetic neuropathy -Prednison 60 mg QD (04/28-05/02/2025) -Valacycovir 1 mg TID (04/28/2025-05/02/2025) -Aspiration precautions #DVT of right superficial femoral vein Per patient records, previous venous u/s negative. Primary team discontinued heparin drip. History of left retinal artery clot, unclear if atherscerotic or blood clot in nature. Plan -consider Eliquis although this is a distal superficial femoral vein Diabetic neuropathy Paroxysmal Atrial Fibrillation CAD HLD HTN - The patient's plan was discussed with attending Dr. Godfrey Lauren MD PGY2 Internal Medicine Attending Provider Attestation/Addendum I personally have seen and examined the patient at the bedside and agreed with the residents findings, assessment and plan of care. Impression Right facial weakness: Atypical Brown's palsy Hypertension Atrial fibrillation Diabetes mellitus: Poorly controlled as per the last A1c of 8.2, getting better management recently Plan/recommendations: Follow-up with MRI brain and echo Will decide about continuation of the acyclovir and steroids tomorrow.
[2025-04-28] MEDS: DIAZEPAM INJ 5 MG/ML VIAL 2 ML 2 MG IVP (20:40)
--- NOTE | 2025-04-28 21:29 | ESCONSULT_ITS ---
<Statement entered by Andrés Padilla MD - 05/01/25 22:52> I personally evaluated examined patient and telemetry with DrDr. CIARA HICKS MD patient is doing fairly well now did have some neurologic symptom appears to be mostly lower motor neuron type of weakness of the right side of her face Brown's palsy improving known history of multiple medical problems available patient detail agree with treatment plan recommendations documented by PGY 2 will continue to monitor the patient if the patient remains stable can be discharged home. HPI Data of Consult Requesting Physician: Tomy Corey MD Admitting Provider: Matthew Conteh MD Attending Provider: Tomy Corey MD Primary Care Provider: Gibran Sandy PA-C Consult Narrative History of present illness: 64-year-old male with a PMH of CAD status post stent, hypertension, diabetes type 2 on insulin, hyperlipidemia, prior unconfirmed A-fib off anti-coagulation, remote DVT, and coronary artery stenosis who presented to the ED on 04/27/2025 with right sided facial droop and tongue and palate numbness. 3 days before admission he noted abnormal tongue sensation and altered taste initially attributing it to herbal supplements. He discontinued the supplements but saw no improvement. On the morning of admission he developed new right sided facial droop, incomplete right eye closure, and difficulty spitting. He also reported flashes of light in his right eye and brief episodes of disequilibrium while brushing his teeth in the preceding week. He had no limb weakness, dysarthria, aphasia, or sensory loss. He endorsed a mild headache on admission and chronic left ear fullness and itching. Workup in ED: CT head negative for acute infarct/bleed. CTA showed 40?60% left ICA stenosis, ~50% bilateral juxtasellar ICA stenosis, no large vessel occlusion. Labs largely unremarkable except Mg 1.3. EKG NSR, LAD, Q waves V1?V2, nonspecific T-wave changes. 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 They recommended MRI brain with CN protocol, ASA, DVT prophylaxis, and consideration of steroids/antivirals. Reason for consult: Cardiology was consulted for management of the patient's unconfirmed history of A-fib. Past Medical History * CAD s/p stent (2016) * Carotid artery stenosis (40?60% left ICA, bilateral ~50% stenosis) * Hypertension * Hyperlipidemia * Diabetes mellitus type 2 (on insulin + metformin) * Atrial fibrillation (off anticoagulation ~1.5 years) * Remote DVT (untreated, RLE larger than LLE) * History of valley fever * Prior lung surgery (RLL resection for clot burden) Past Surgical History * PCI with stent placement (2016) * Right lower lobe lung resection * Knee surgery (2001) Medications (pending med rec's) * Insulin glargine 50 units qHS * Insulin lispro 12 units with meals * Metformin * Lisinopril * Magnesium supplement * Aspirin 81 mg daily Allergies * Penicillin (reaction unspecified) Family History * Father: CAD, of [place] * No known family history of stroke Social History * Lives with partner * Former smoker (20 pack-years, quit 2014) * Quit alcohol 2002 * Denies recreational drug use * 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 * HEENT: Admits to soft palate numbness. Seeing flashing lights. Right upper lip droop. Right facial droop. Admits to a headache over the past few days. Also endorses ear fullness and itching. * Cardiac: Admits to occasional dull chest discomfort. No palpitations * Pulmonary: Denies shortness of breath or cough. * GI: Patient mentions that he had diarrhea 2 days before admission. * : Denies dysuria, hematuria, frequency, or urgency. * MSK: Denies pain in the extremities, joints, or myalgias. * Neuro: Denies weakness, numbness, vision changes, or speech difficulty. Exam Vital Signs Temp Pulse Resp BP Pulse Ox O2 Del Method 98.7 F 85 17 120/89 H 96 Room Air 04/28/25 16:00 04/28/25 16:04/28/25 16:04/28/25 16:00 04/28/25 16:04/28/25 16:00 Narrative Exam General: Awake and in no acute distress. Conversational and non-toxic appearing. Neurologic: GCS 15. Alert and oriented x3, no gross neurological deficit, and patient able to move all 4 extremities. HEENT: Right sided facial droop. Unable to completely close right eye. Normocephalic, atraumatic, mucous membranes moist. Pupils reactive to light. Heart: Regular rate and rhythm, normal S1 and S2, no murmurs. Lungs: Clear to auscultation bilaterally with no wheezing or crackles. Abdomen: Soft, nondistended, nontender, positive bowel sounds. No guarding or rebound tenderness. Extremities: Right lower extremity larger than left lower extremity, no erythema or tenderness. Skin: Warm. Dry. No rash or ecchymoses. Results Labs 04/28/25 04:56 04/28/25 04:56 Labs: Short CBC 04/28/25 Range/Units 04:56 WBC 5.9 (3.8-10.6) Thou/mm3 Hgb 17.1 H (13.5-16.0) g/dL Hct 50.4 (41.0-53.0) % Plt Count 180 D (140-440) Thou/mm3 BMP 04/28/25 04:56 Sodium 140 Potassium 4.3 Chloride 104 Carbon Dioxide 21.7 BUN 9 Creatinine 0.8 Glucose 213 H D Calcium 9.8 Liver Function 04/28/25 Range/Units 04:56 Total Bilirubin 0.5 (0.3-1.2) mg/dL AST 29 (0-34) U/L ALT 47 (10-49) U/L Alkaline Phosphatase 63 (46-116) U/L Albumin 4.6 (3.4-4.8) gm/dL Quality Measures Quality Measures VTE therapy Medications Home Medications and Allergies Home Medications ?Medication ?Instructions ?Recorded ?Confirmed ?Type aspirin 81 mg tablet,delayed 81 mg PO QDAY ##0 6 04/28/25 History release (Aspir-) metformin 1,000 mg tablet 1,000 mg PO BID #0 tabs 05/0 12/2604/28/25 History (Glucophage) atorvastatin 40 mg tablet 20 mg PO QDAY 05/13/1904/28 History montelukast 10 mg tablet 10 mg PO QDAY 06/07/1904/28 History insulin aspart U-100 100 unit/mL See Rx Instructions . Route .COMPLEX 07/29/22 04/28/25 History (3 mL) subcutaneous pen (Novolog FlexPen U-100 Insulin aspart) insulin glargine 100 unit/mL (3 See Rx Instructions .R oute .COMPLEX 07/29/22 04/28/25 History mL) subcutaneous pen (Lantus Solostar U-100 Insulin) empagliflozin 25 mg tablet 25 mg PO QDAY 12/01/2304/11 History (Jardiance) losartan 50 mg tablet 100 mg PO QDAY 12/01/2304/11 History atorvastatin 20 mg tablet 20 mg PO DAILY 04/28/2504/11 History Allergies Allergy/AdvReac Type Severity Reaction Status Date / Time Penicillins Allergy Severe Flushing Verified 04/27/25 16:10 Visit Medications Acetaminophen (Acetaminophen 325 Mg Tablet) 650 mg PO Q6H PRN PRN Reason: Fever >100.4 Stop: 05/27/25 21:09 Acetaminophen (Acetaminophen 325 Mg Tablet) 650 mg PO Q6H PRN PRN Reason: PAIN SCALE 1-3 (mild Stop: 05/27/25 21:09 Aspirin (Aspirin Ec 81 Mg Tabec) 81 mg PO QDAY [facility] Stop: 05/28/25 08:59 Last Admin: 04/28/25 09:11 Dose: 81 mg Atorvastatin Calcium (Atorvastatin Calcium 20 Mg Tablet) 80 mg PO HS [facility] Stop: 05/28/25 20:59 Dextrose (Dextrose 50%-Water Inj 50 Ml Syringe) 25 ml IV Q15MIN PRN PRN Reason: BG 50-70 responsive npo pt Stop: 05/27/25 21:09 Dextrose (Dextrose 50%-Water Inj 50 Ml Syringe) 50 ml IV Q15MIN PRN PRN Reason: BG <50 OR BG <70 & pt unresponsive Stop: 05/27/25 21:09 Glucagon (Glucagon Inj 1 Mg Vial) 1 mg IM Q15MIN PRN PRN Reason: BG <70, and no IV access Heparin Sodium/Dextrose (Heparin In D5w Ivpb) 25,000 unit in 250 mls @ 14.645 mls/hr IV .Q17H5M [facility]; Protocol Stop: 05/12/25 01:14 Last Titration: 04/28/25 11:19 Dose: 0 units/kg/hr, 0 mls/hr Insulin Degludec (Insulin Degludec 5 Unit/0.05 Ml (Per 5 Units)) 45 unit SC HS [facility] Stop: 05/28/25 20:59 Insulin Human Lispro (Insulin Lispro (Admelog) 1 Unit/0.01 Ml Unit) 0 unit SC AC [facility]; Protocol Stop: 05/28/25 07:29 Last Admin: 04/28/25 17:03 Dose: 2 unit Ondansetron HCl (Ondansetron Inj 2 Mg/Ml Inj 2 Ml) 4 mg IVP Q6H PRN; Protocol PRN Reason: NAUSEA OR VOMITING Stop: 05/27/25 21:09 Pantoprazole Sodium (Pantoprazole Inj 40 Mg Vial) 40 mg IVP QDAY [facility] Stop: 05/28/25 08:59 Last Admin: 04/28/25 09:11 Dose: 40 mg Prednisone (Prednisone 20 Mg Tablet) 60 mg PO QDAY [facility] Stop: 05/04/25 21:06 Last Admin: 04/28/25 09:11 Dose: 60 mg Valacyclovir HCl (Valacyclovir 500 Mg Tablet (Non-Formulary)) 1,000 mg PO TID [facility] Stop: 05/04/25 22:01 Last Admin: 04/28/25 14:25 Dose: 1,000 mg Discontinued Medications Acyclovir (Acyclovir 800 Mg Tablet) 800 mg PO X1 ONE Stop: 04/27/25 18:42 Last Admin: 04/27/25 20:25 Dose: 800 mg Aspirin (Aspirin 81 Mg Chew) 81 mg PO X1 ONE Stop: 04/27/25 18:42 Last Admin: 04/27/25 20:25 Dose: 81 mg Dexamethasone (Dexamethasone 4 Mg Tablet) 8 mg PO X1 ONE; Protocol Stop: 04/27/25 19:01 Last Admin: 04/27/25 20:25 Dose: 8 mg Diazepam (Diazepam Inj 5 Mg/Ml Vial 2 Ml) 2 mg IVP X1 PRN PRN Reason: Claustrophobia Stop: 05/03/25 09:52 Last Admin: 04/28/25 20:40 Dose: 2 mg Heparin Sodium (Porcine) (Heparin Sod Inj 5000 Unit/Ml Vial) 5,000 unit SC Q12HR [facility] Stop: 05/12/25 08:59 Heparin Sodium (Porcine) (Heparin Sod Inj 5000 Unit/Ml Vial) 6,800 unit 80 unit/kg (6800 unit) IV X1 ONE; Protocol Stop: 04/28/25 00:36 Last Admin: 04/28/25 01:46 Dose: Not Given Heparin Sodium (Porcine) (Heparin Sod Inj 5000 Unit/Ml Vial) 6,500 unit IVP X1 ONE Stop: 04/28/25 01:11 Last Admin: 04/28/25 01:29 Dose: 6,500 unit Magnesium Sulfate/Dextrose (Magnesium Sulfate Ivpb) 1 gm in 100 mls @ 100 mls/hr IV X1 ONE Stop: 04/27/25 19:04 Last Infusion: 04/27/25 19:55 Dose: Infused Magnesium Sulfate (Magnesium Sulfate Ivpb) 4 gm in 50 mls @ 12.5 mls/hr IV X1 ONE Stop: 04/28/25 01:25 Last Admin: 04/27/25 21:58 Dose: 12.5 mls/hr Insulin Degludec (Insulin Degludec 5 Unit/0.05 Ml (Per 5 Units)) 40 unit SC ACHS [facility] Stop: 05/27/25 22:14 Insulin Degludec (Insulin Degludec 5 Unit/0.05 Ml (Per 5 Units)) 40 unit SC HS [facility] Stop: 05/27/25 22:14 Last Admin: 04/27/25 22:23 Dose: 40 unit Insulin Glargine (Insulin Glargine (Lantus) 5 Unit/0.05 Ml (Per 5 Units)) 40 unit SC HS [facility] Stop: 05/27/25 21:24 Last Admin: 04/27/25 22:19 Dose: Not Given Magnesium Oxide (Magnesium Oxide 400 Mg Tablet) 400 mg PO X1 ONE Stop: 04/27/25 18:05 Last Admin: 04/27/25 18:16 Dose: Not Given Pantoprazole Sodium (Pantoprazole Inj 40 Mg Vial) 40 mg IVP X1 ONE Stop: 04/28/25 00:36 Last Admin: 04/28/25 01:31 Dose: 40 mg Assessment & Plan Plan 64-year-old male with a PMH of CAD status post stent, hypertension, diabetes type 2 on insulin, hyperlipidemia, prior unconfirmed A-fib off anti-coagulation, remote DVT, and coronary artery stenosis who presented to the ED on 04/27/2025 with right sided facial droop and tongue and palate numbness. Cardiology was consulted for management of the patient's unconfirmed history of A-fib. #A-fib #Stroke rule out * The patient's EKG is negative for A-fib * No clinical records indicate that the patient ever had A-fib * Suspicion is higher for Brown's palsy given the patient's isolated right sided facial droop, negative CT scan, and absence of A-fib Plan: * Anticoagulation is not indicated in terms of A-fib due to its absence #CN VII Palsy #Acute embolism and thrombosis of right femoral vein #Carotid artery stenosis #CAD status post stent #Diabetes mellitus type 2 #Hypomagnesemia #Hypertension #Hyperlipidemia The rest of the patient's hospital problems will be managed per the primary team Patient was seen and discussed with my attending physician Dr. Padilla. Hieu Diaz DO PGY-1.
[2025-04-28] MEDS: ATORVASTATIN CALCIUM 20 MG TABLET 80 MG PO (22:09)
[2025-04-28] MEDS: INSULIN DEGLUDEC 5 UNIT/0.05 ML (PER 5 UNITS) 45 UNIT SC (22:11)
[2025-04-29] VITALS (7 sets, daily range): BP systolic 134–151; BP diastolic 66–89; PULSE 66–75; RESP 12–97; TEMP 36–36.2; O2SAT 96–98; BMI 25.7
[2025-04-29] MEDS: valACYclovir 500 MG TABLET (NON-FORMULARY) 1000 MG PO (05:20)
[2025-04-29 06:33] LABS: Basophils # (Auto) 0.1 Thou/mm3 (0.0-0.2); Basophils % (Auto) 0 % (0-2.5); Eosinophils # (Auto) 0.1 Thou/mm3 (0.0-0.5); Eosinophils % (Auto) 1 % (0-10); Hematocrit 48.6 % (41.0-53.0); Hemoglobin 16.4 g/dL (13.5-16.0); Immature Granulocytes Auto 0.04 Thou/mm3 (0.00-0.00); Lymphocytes # (Auto) 1.9 Thou/mm3 (1.0-4.8); Lymphocytes % (Auto) 16 % (10-50); Mean Corpuscular HGB Conc 33.7 g/dl (31.0-37.0); Mean Corpuscular Hemoglobin 29.2 pg (25.0-35.0); Mean Corpuscular Volume 87 fL (80-100); Monocytes # (Auto) 1.2 Thou/mm3 (0.0-0.8); Monocytes % (Auto) 10 % (0-12); Neutrophils # (Auto) 8.6 Thou/mm3 (1.8-7.7); Neutrophils % (Auto) 73 % (37-80); Nucleated Red Blood Cell # 0.00 Thou/mm3 (0.00-0.00); Nucleated Red Blood Cell % 0 /100 WBC (0); Platelet Count 201 Thou/mm3 (140-440); RDW Standard Deviation 40.4 fL (35.1-43.9); Red Blood Count 5.62 Miln/mm3 (4.50-5.90); White Blood Count 11.9 Thou/mm3 (3.8-10.6)
[2025-04-29 06:54] LABS: Alanine Aminotransferase 39 U/L (10-49); Albumin, Serum 4.5 gm/dL (3.4-4.8); Albumin/Globulin Ratio 2.0 (1.2-2.2); Alkaline Phosphatase 56 U/L (46-116); Anion Gap 11 (7-16); Aspartate Amino Transferase 27 U/L (0-34); BUN/Creatinine Ratio 15 Ratio (12-20); Bilirubin,Total 0.4 mg/dL (0.3-1.2); Blood Urea Nitrogen 12 mg/dL (9-23); Calcium 9.9 mg/dL (8.3-10.6); Calcium (Corrected) 9.9 mg/dL (8.5-10.1); Carbon Dioxide 25.4 mMol/L (20.0-31.0); Chloride 104 mMol/L (98-107); Creatinine (Component) 0.8 mg/dL (0.6-1.3); Estimated Creatinine Clearance 96.3 mL/min (>60); Globulin 2.3 gm/dL (2.3-3.5); Glucose 163 mg/dL (74-106); Magnesium 1.7 mg/dL (1.6-2.6); Osmolality,Calculated 283 (275-295); Phosphorous 3.7 mg/dL (2.4-5.1); Potassium 4.0 mMol/L (3.4-5.1); Sodium 140 mMol/L (136-145); Total Protein 6.8 gm/dL (5.7-8.2); eGFR > 60 See Note
[2025-04-29] MEDS: INSULIN LISPRO (AdmeLOG) 1 UNIT/0.01 ML UNIT SC ×2 (07:18→11:24)
--- NOTE | 2025-04-29 08:26 | ESDS_ITS ---
<Statement entered by Jian Quijano MD - 04/29/25 19:44> Patient was seen and examined at bedside. Agree on the discharge plan for this patient. 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 Recommended to discontinue steroid and antiviral therapy as the facial weakness is minimal. Regarding his chronic DVT patient reported that he can take the Eliquis. Instructed to take 10 mg twice daily for 7 days followed by 5 mg twice daily and to follow-up with his PCP for the duration of treatment. - Patient's plan and care discussed with my attending, Dr. Lorena Quijano MD Internal Medicine PGY-3 Planned Discharge Date 04/29/25 DS: Providers Provider Date of admission: 04/29/25 07:41 Primary care physician: Gibran Sandy PA-C Admitting Provider: Matthew Conteh MD Attending Provider on Admission: Tomy Corey MD Consults: 04/27/25 23:58 Referral Speech Therapy Routine Comment: 04/28/25 00:01 Consult to Neurology / Tele-Neurology Routine Comment: Consulting Provider: Yahir Donahue 04/28/25 01:08 Consult to Cardiology Routine Comment: Reeval anticoag in setting of bleed risk and DVT Consulting Provider: Andrés Padilla Attending Provider on DC: Yaya Carrillo DO Discharging Provider: Yaya Carrillo DO DS: Diagnosis Problem List Completed Was Problem List Reviewed/Reconciled?: Yes Hospital Course Hospital Course Hospital course: 64-year-old male with a PMH of CAD status post stent, hypertension, diabetes type 2 on insulin, hyperlipidemia, prior unconfirmed A-fib off anti-coagulation, remote DVT, and coronary artery stenosis who presented to the ED on 04/27/2025 with right sided facial droop and tongue and palate numbness. Admitted for stroke rule out vs Brown's palsy. ED course: CT head negative for acute infarct/bleed. CTA showed 40?60% left ICA stenosis, ~50% bilateral juxtasellar ICA stenosis, no large vessel occlusion. Venous duplex showing R proximal superficial femoral vein DVT. Labs largely unremarkable except Mg 1.3. EKG NSR, LAD, Q waves V1?V2, nonspecific T-wave changes. 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 They recommended MRI brain with CN protocol, ASA, DVT prophylaxis, and consideration of steroids/antivirals. Hospital course: Patient reported 1 week of sensation of disequilibrium and accidental lip biting. Also reported diarrhea in the morning only, decreased taste, and tongue numbness starting 4 days ago. On morning of admission 2 days ago, patient noted right facial droop and difficulty spitting, upper lip discomfort, incomplete eye closure, flashing in his right vision, headache, and increased floaters. Today, patient reports improvement in right eye closure. Also denies headache or flashing in his vision. MRI brain was negative for acute hemorrhage mass effect or midline shift. No acute infarct. Prominent chronic microvascular white matter change. Patient was started on treatment for Brown's palsy per tele-Neurology recommendations: prednisone 60 mg po x 7 days (04/28-04/29) and valacyclovir (04/28-04/29). Neurology also consulted and recommended to discontinue valacyclovir and prednisone at discharge. Discussed starting blood thinner with patient due to chronic right superficial femoral vein DVT, which he was amenable to. Discussed with patient to start Eliquis 10 mg po BID x 7 days, then decrease to 5 mg po BID. Patient hemodynamically stable at discharge. Consults during this admission: Cardiology - Dr. Padilla Neurology - Dr. 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 History of paroxysmal atrial fibrillation (not on anticoag) # Carotid artery stenosis # Coronary artery disease # Insulin-dependent Type 2 Diabetes mellitus # Hypertension # Erythrocytosis Case discussed with my attending Dr. Carrillo, and senior resident, Dr. Alsharafi Colena Dilan, OMS4 Time Spent with Patient Time attestation: Total time spent providing and/or coordinating discharge services: Time spent: Greater than 30 minutes Exam Vital Signs Temp Pulse Resp BP Pulse Ox O2 Del Method 97.1 F 72 18 134/81 H 96 Room Air 04/29/25 04:00 04/29/25 07:24 04/29/25 04:00 04/29/25 04:00 04/29/25 04:00 04/29/25 04:00 Narrative Exam GENERAL: A&OX3. No acute distress. Not diaphoretic. HEENT: Normocephalic. Moist mucous membranes. No scleral icterus. EOMI CV: Regular rate and rhythm. S1 and S2 heard. No murmurs. PULM: No accessory muscle use. CTAB. No wheezing or crackles. ABDOMEN: Soft and non-distended. No tenderness to palpation of all quadrants. No rebound or guarding. EXTREMITIES: No lower extremity edema SKIN: Warm and dry. NEURO: Asymmetry of smile and eyebrow raise, with right facial droop. 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 No aphasia. Present and equal sensation bilaterally of upper and lower face, upper extremities, and lower extremities. Moving all extremities spontaneously. Ambulating without assistance. PSYCH: Cooperative with exam. Discharge Plan Plan Patient Disposition: HOME (Self Care) Patient condition on transfer: Stable Care Plan Goals: Discharge instructions: We Put you on a blood thinner called eliquis, start with 10mg two times a day for 7 days, and then decrease the dose to 5mg twice a day and to be followed by PCP Follow up with PCP within one week from discharge Follow up with the neurologist within one to two weeks from discharge follow up with your heart doctor within one week from discharge Use meds as prescribed In case of worsening of your symptoms please return to the ED as soon as possible Prescriptions/Referrals Prescriptions/Med Rec: New Eliquis DVT-PE Treat 30D Start 5 mg (74 tabs) tablets,dose pack 5 mg PO BID Qty: 74 0RF Continued aspirin [Aspir-81] 81 mg Tablet,Delayed Release (Dr/Ec) 81 mg PO QDAY Qty: 0 metformin [Glucophage] 1,000 MG tablet 1,000 mg PO BID Qty: 0 montelukast 10 mg tablet 10 mg PO QDAY Patient Comments: TAKE 1 TABLET BY MOUTH EVERY DAY IN THE EVENING insulin aspart U-100 [Novolog FlexPen U-100 Insulin] 100 unit/mL (3 mL) insulin pen See Rx Instructions .ROUTE .COMPLEX Patient Comments: INJECT 10 TO 12 UNITS UNDER THE SKIN THREE TIMES DAILY WITH MEALS Rx Instructions: 12-16 units insulin glargine [Lantus Solostar U-100 Insulin] 100 unit/mL (3 mL) insulin pen See Rx Instructions .ROUTE .COMPLEX Patient Comments: ADMINISTER 60 UNITS UNDER THE SKIN EVERY DAY. INSULIN PROTOCOL Rx Instructions: 60 units Jardiance 25 mg Tablet 25 mg PO QDAY losartan 50 mg tablet 100 mg PO QDAY atorvastatin 20 mg tablet 20 mg PO DAILY Patient Comments: TAKE 1 TABLET BY MOUTH DAILY Discontinued atorvastatin 40 mg tablet 20 mg PO QDAY Patient Comments: TAKE 1 TABLET BY MOUTH EVERY DAY Referrals: Gibran Sandy PA-C [Primary Care Provider] - Patient/Caregiver Discharge Instructions Discharge Activity: activity as tolerated Other Discharge Activity Instructions:: continue to take Atorvastatin 20 mg by mouth daily per order. Education Materials: Brown's Palsy, DVT Dc Print Language: Sami Stand Alone Forms: [employer] Award Info., Patient Portal Info Letter Discharge Order Discharge Orders: Discharge (Routine); Ordered 04/29/25 Ordered By: Jian Quijano Quality Discharge Quality Measures VTE prophylaxis MD Attestestation MD Attestation I have discussed and was present for the essential components of the discharge history, physical examination, diagnosis, and discharge treatment plan with the resident. I agree with the patient's discharge care as documented by the resident and amended herein by me. Som Carrillo DO. The patient understood all discharge instructions, all questions were answered satisfactorily. The patient was instructed to return to the Emergency Department is symptoms worsened or persisted. Patient was stable, afebrile, tolerating p.o. intake and ambulatory at time of discharge home. Although this document has been carefully reviewed, there may still be some phonetic and other typographical errors. These errors are purely grammatical due to imperfections in the software program and should not be construed in any way to compromise the substance of the patient's medical care during this visit.
[2025-04-29] MEDS: ASPIRIN EC 81 MG TABEC PO (08:27)
--- NOTE | 2025-04-29 13:07 | PC.SS ---
Rounding: Plan for DC today going back home, no needs identified
[2025-04-29 13:36] LABS: Thyroid Stimulating Hormone 0.84 uIU/mL (0.55-4.78)
--- NOTE | 2025-04-29 14:41 | PD.RESPRO ---
Documentation for date of: 04/29/25 Subjective Subjective Interval history: Patient is a 64-year-old male with a past medical history of hypertension, hyperlipidemia, CAD status post stents (2017), diabetes mellitus type 2 insulin-dependent, history of paroxysmal atrial fibrillation who was admitted for right facial droop and stroke rule out. 04/29/2025: No overnight events. Patient overall improved symptoms. 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 MRI negative. Discontinue steriod and Valacyclovir. Exam Vital Signs Temp Pulse Resp BP Pulse Ox O2 Del Method 96.8 F 69 18 140/89 H 98 Room Air 04/29/25 12:00 04/29/25 12:00 04/29/25 12:00 04/29/25 12:00 04/29/25 12:04/29/25 12:00 Narrative Exam General Appearance: Alert & Oriented X3, well-nourished male who is lying in bed in no acute distress HEENT: Skull symmetrical and atraumatic. Conjunctivae pin and moist. Pupils equal, round, reactive to light and accommodation (PERRL). External ear without lesion or discharge. Straight, nares patient, mucosa pink, no discharge. No thyroid nodule appreciated. No cervical lymphadenopathy. Cardio: Normal Rate and Rhythm with S1 and S2 heart sounds. No murmurs or extra heart sounds auscultated. No bruits on carotid auscultation. No peripheral edema or cyanosis. Lungs: Symmetric with good expansion. Chest and back non-tender. Breath sounds vesicular without crackles, wheezing or rhonchi Abdomen: Non-tender, Non-distended, Normal Reactive Bowel Sounds Neuro: Yes Alert, Yes cooperative, YEs oriented to person, Yes place, and Yes time. Speech clear. CN grossly intact. Upper motor strength 5/5 and Lower motor strength 5/5. Right olson decrease sensation. Right nasal depression. Objective Labs 04/29/25 05:49 04/29/25 05:49 Labs: Laboratory Results - last 24 hr 04/29/25 05:49 WBC 11.9 H D RBC 5.62 Hgb 16.4 H Hct 48.6 MCV 87 MCH 29.2 MCHC 33.7 RDW Std Deviation 40.4 Plt Count 201 Neut % (Auto) 73 Lymph % (Auto) 16 [place] % (Auto) 10 Eos % (Auto) 1 Baso % (Auto) 0 Neut # (Auto) 8.6 H Lymph # (Auto) 1.9 [place] # (Auto) 1.2 H Eos # (Auto) 0.1 Baso # (Auto) 0.1 Immature Gran # (Auto) 0.04 H Absolute Nucleated RBC 0.00 Immature Gran % 0 Nucleated RBC % 0 Sodium 140 Potassium 4.0 Chloride 104 Carbon Dioxide 25.4 Anion Gap 11 BUN 12 Creatinine 0.8 Estim Creat Clear Calc 96.3 eGFR > 60 BUN/Creatinine Ratio 15 Glucose 163 H D Calculated Osmolality 283 Calcium 9.9 Corrected Calcium 9.9 Phosphorus 3.7 Magnesium 1.7 Total Bilirubin 0.4 AST 27 ALT 39 Alkaline Phosphatase 56 Total Protein 6.8 Albumin 4.5 Globulin 2.3 Albumin/Globulin Ratio 2.0 TSH 0.84 Quality Measures Quality Measures VTE prophylaxis Assessment & Plan Assessment Current Active Medications: Generic Name Dose Route Start Last Admin Trade Name Freq PRN Reason Stop Dose Admin Acetaminophen 650 mg 04/27/25 21:10 Acetaminophen 325 Mg Tablet PO 05/27/25 21:09 Q6H PRN Fever >100.4 Acetaminophen 650 mg 04/27/25 21:10 Acetaminophen 325 Mg Tablet PO 05/27/25 21:09 Q6H PRN PAIN SCALE 1-3 (mild Aspirin 81 mg 04/28/25 09:00 04/29/25 08:27 Aspirin Ec 81 Mg Tabec PO 05/28/25 08:59 81 mg QDAY SHALOM Administration Atorvastatin Calcium 80 mg 04/28/25 21:00 04/28/25 22:09 Atorvastatin Calcium 20 Mg Tablet PO 05/28/25 20:59 80 mg HS SHALOM Administration Dextrose 25 ml 04/27/25 21:10 Dextrose 50%-Water Inj 50 Ml Syringe IV 05/27/25 21:09 Q15MIN PRN BG 50-70 responsive npo pt Dextrose 50 ml 04/27/25 21:10 Dextrose 50%-Water Inj 50 Ml Syringe IV 05/27/25 21:09 Q15MIN PRN BG <50 OR BG <70 & pt unresponsive Glucagon 1 mg 04/27/25 21:10 Glucagon Inj 1 Mg Vial IM Q15MIN PRN BG <70, and no IV access Heparin Sodium/Dextrose 25,000 unit in 250 mls @ 14.645 mls/hr 04/28/25 01:15 04/28/25 11:19 Heparin In D5w Ivpb IV 05/12/25 01:14 0 units/kg/hr .Q17H5M SHALOM 0 mls/hr Titration Protocol 18 UNITS/KG/HR Insulin Degludec 45 unit 04/28/25 21:00 04/28/25 22:11 Insulin Degludec 5 Unit/0.05 Ml (Per 5 Units) SC 05/28/25 20:59 45 unit HS SHALOM Administration Insulin Human Lispro 0 unit 04/28/25 07:30 04/29/25 11:24 Insulin Lispro (Admelog) 1 Unit/0.01 Ml Unit SC 05/28/25 07:29 2 unit AC SHALOM Administration Protocol Ondansetron HCl 4 mg 04/27/25 21:10 Ondansetron Inj 2 Mg/Ml Inj 2 Ml IVP 05/27/25 21:09 Q6H PRN NAUSEA OR VOMITING Protocol Pantoprazole Sodium 40 mg 04/30/25 09:00 Pantoprazole 40 Mg Tablet PO 05/30/25 08:59 QDAY SHALOM Protocol Prednisone 60 mg 04/28/25 09:00 04/29/25 08:27 Prednisone 20 Mg Tablet PO 05/04/25 21:06 60 mg QDAY SHALOM Administration Plan Patient is a 64-year-old male with a past medical history of hypertension, hyperlipidemia, CAD status post stents (2016), diabetes mellitus type 2 insulin-dependent, history of paroxysmal atrial fibrillation who was admitted for right facial droop and stroke rule out. #Atypical Brown's Palsy #Right Facial Droop #CVA Rued out Per chart review patient presented with decreased and upper and lower CN VII motor funciton. Per tele neuro patient was started on [place] treatment. Patient examined at bedside, upper facial CN VII motor function intact, thus consider stroke vs TIA ASCVD 16.9% of cardioevent in the next 10 years, high intensity recommended, LDL 63, consider 20 or 40 mg HS given improved LDL and concern for bells palsy. Plan -Prednison 60 mg QD (04/28-05/02/2025), discontinue -Valacycovir 1 mg TID (04/28/2025-05/02/2025), discontinue -Resume Atorvastatin 20 mg PO or Atorvastain 40 mg HS -Consider gabapentin for diabetic neuropathy -Aspiration precautions #DVT of right superficial femoral vein Per patient records, previous venous u/s negative. Primary team discontinued heparin drip. History of left retinal artery clot, unclear if atherscerotic or blood clot in nature. Plan -consider Eliquis although this is a distal superficial femoral vein #Diabetic neuropathy #Paroxysmal Atrial Fibrillation #CAD #HLD #HTN - The patient's plan was discussed with attending Dr. Godfrey Lauren MD PGY2 Internal Medicine Attending Provider Attestation/Addendum I personally have seen and examined the patient at the bedside and agreed with the residents findings, assessment and plan of care. Impression Right facial weakness: Atypical Brown's palsy Hypertension Atrial fibrillation Diabetes mellitus: Poorly controlled as per the last A1c of 8.2, getting better management recently Plan/recommendations: Reviewed MRI brain and I agreed with the radiologist's findings of chronic small vessel disease and no acute ischemic infarction. Continue with Eliquis and statin and vascular risk factors controlled Facial massaging exercises Hold off on continuing steroids and acyclovir as the right facial weakness is not significant at present. Patient is stable for discharge and I will see him back in my office in 2 weeks
== END 2025-04-29 14:15 | disposition home or self-care (01) | DRG 74 ==
LOC: SERX 19:31 → SERHOLD 21:40 → S2NX 23:02 → SERHOLD 04-28 12:24 → S2NX 04-28 12:24
PROVIDERS: Nurse Practitioner Family; Admitting Provider Student in an Organized Health Care Education/Training Program; Emergency Provider Emergency Medicine; PCP Physician Assistant; Visit Provider Student in an Organized Health Care Education/Training Program
DX: G51.0 Bell's palsy (principal); I48.20 Chronic atrial fibrillation, unspecified; I82.411 Acute embolism and thrombosis of right femoral vein; K92.2 Gastrointestinal hemorrhage, unspecified; I25.10 Atherosclerotic heart disease of native coronary artery without angina pectoris; E11.40 Type 2 diabetes mellitus with diabetic neuropathy, unspecified; I10 Essential (primary) hypertension; E78.5 Hyperlipidemia, unspecified; E83.42 Hypomagnesemia; I25.2 Old myocardial infarction; I48.0 Paroxysmal atrial fibrillation; I65.22 Occlusion and stenosis of left carotid artery; D75.1 Secondary polycythemia; Z79.01 Long term (current) use of anticoagulants; Z79.4 Long term (current) use of insulin; Z79.82 Long term (current) use of aspirin; Z79.84 Long term (current) use of oral hypoglycemic drugs; Z79.899 Other long term (current) drug therapy; Z87.891 Personal history of nicotine dependence; Z88.0 Allergy status to penicillin
CPT/HCPCS: 36415; 70450; 70496; 70498; 70551; 80053; 80061; 80307; 81001; 83036; 83735; 84100; 84443; 85025; 85610; 85730; 92610; 93005; 93971; 96365; 96366; 96375; 99284; A4649; G0378; J1644; J1815; J2470; J3360; J3475; J7512; J8540; Q9967; A9270

== ENCOUNTER → 2025-07-21 | Outpatient (CLI) | payer MEDICARE, MEDICAID, OTHER, SELFPAY ==
[2025-07-21 12:25] LABS: Glucose Estimated Average 183 mg/dL (80-131); Hemoglobin A1C 8.0 % Hgb (4.8-6.0)
[2025-07-21 12:30] LABS: Alanine Aminotransferase 42 U/L (10-49); Albumin, Serum 4.8 gm/dL (3.4-4.8); Albumin/Globulin Ratio 2.3 (1.2-2.2); Alkaline Phosphatase 87 U/L (46-116); Anion Gap 8 (7-16); Aspartate Amino Transferase 28 U/L (0-34); BUN/Creatinine Ratio 9 Ratio (12-20); Bilirubin,Total 0.4 mg/dL (0.3-1.2); Blood Urea Nitrogen 7 mg/dL (9-23); Calcium 9.4 mg/dL (8.3-10.6); Calcium (Corrected) 9.4 mg/dL (8.5-10.1); Carbon Dioxide 27.2 mMol/L (20.0-31.0); Cardiac Risk Estimate 4.7 RATIO (4.0-6.7); Chloride 106 mMol/L (98-107); Cholesterol 147 mg/dL (132-200); Creatinine (Component) 0.8 mg/dL (0.6-1.3); Globulin 2.1 gm/dL (2.3-3.5); Glucose 140 mg/dL (74-106); HDL Cholesterol 31 mg/dL (40-60); Osmolality,Calculated 281 (275-295); Potassium 4.8 mMol/L (3.4-5.1); Sodium 141 mMol/L (136-145); Total Protein 6.9 gm/dL (5.7-8.2); Triglycerides 498 mg/dL (30-150); eGFR > 60 See Note
[2025-07-21 12:36] LABS: Basophils # (Auto) 0.1 Thou/mm3 (0.0-0.2); Basophils % (Auto) 1 % (0-2.5); Eosinophils # (Auto) 0.4 Thou/mm3 (0.0-0.5); Eosinophils % (Auto) 5 % (0-10); Hematocrit 50.5 % (41.0-53.0); Hemoglobin 16.8 g/dL (13.5-16.0); Immature Granulocytes Auto 0.03 Thou/mm3 (0.00-0.00); Lymphocytes # (Auto) 1.8 Thou/mm3 (1.0-4.8); Lymphocytes % (Auto) 27 % (10-50); Mean Corpuscular HGB Conc 33.3 g/dl (31.0-37.0); Mean Corpuscular Hemoglobin 29.4 pg (25.0-35.0); Mean Corpuscular Volume 88 fL (80-100); Monocytes # (Auto) 0.6 Thou/mm3 (0.0-0.8); Monocytes % (Auto) 8 % (0-12); Neutrophils # (Auto) 3.9 Thou/mm3 (1.8-7.7); Neutrophils % (Auto) 58 % (37-80); Nucleated Red Blood Cell # 0.00 Thou/mm3 (0.00-0.00); Nucleated Red Blood Cell % 0 /100 WBC (0); Platelet Count 206 Thou/mm3 (140-440); RDW Standard Deviation 41.6 fL (35.1-43.9); Red Blood Count 5.72 Miln/mm3 (4.50-5.90); White Blood Count 6.7 Thou/mm3 (3.8-10.6)
[2025-07-21 12:48] LABS: Creatinine MALB Rnd Ur 24 mg/dL (30-125); Microalbumin, Random Urine < 3 mg/L (0-300)
== END | disposition home or self-care (01) ==
PROVIDERS: PCP Student in an Organized Health Care Education/Training Program; Referring Provider Student in an Organized Health Care Education/Training Program; Visit Provider Student in an Organized Health Care Education/Training Program
DX: I25.10 Atherosclerotic heart disease of native coronary artery without angina pectoris (principal); I10 Essential (primary) hypertension; E11.8 Type 2 diabetes mellitus with unspecified complications
CPT/HCPCS: 36415; 80053; 80061; 82043; 82570; 83036; 85025